=== PATIENT | male | born 1935 | race Asian ===

== ENCOUNTER 2019-06-23 20:47 | Emergency (ER) | payer OTHER ==
[2019-06-23] MEDS ORDERED: ONDANSETRON 4 MG/2 ML VIAL ONE (21:27)
[2019-06-23] MEDS ORDERED: MORPHINE 2 MG/ML SYR ONE (21:27)
[2019-06-23] MEDS ORDERED: NA CHLORIDE 0.9% 1,000 ML ONE (21:28)
[2019-06-23 21:37] LABS: Absolute Lymphocytes (CBC) 1.6 K/uL (0.7-4.9); Basophils % 0.7 % (0-1.3); Lymphocytes % 33.6 % (15.3-44.8); MPV 9.5 fL (7.6-11.3); RBC Red Blood Cell Count 3.82 M/uL (4.33-5.43)
[2019-06-23 21:54] LABS: Albumin 3.8 g/dL (3.4-5.0); Bilirubin Direct 0.1 mg/dL (0-0.2); Bilirubin Total 0.2 mg/dL (0.2-1.0); Potassium 4.2 mmol/L (3.5-5.1); Protein, Total 7.2 g/dL (6.4-8.2)
[2019-06-23 22:20] LABS: Urine Blood NEGATIVE (NEG); Urine Glucose NEGATIVE (NEG); Urine Protein NEGATIVE (NEG); Urine Specific Gravity 1.025 (1.005-1.030)
[2019-06-23 22:22] LABS: Urine Bacteria <20 /HPF (NONE SEEN); Urine RBC <5 /HPF (NONE SEEN)
[2019-06-23 22:23] LABS: Urine Culture Reflex Order NOT NEEDED; Urine Mucus 1+ /HPF (NONE SEEN)
--- NOTE | 2019-06-23 23:05 | EDPHYS ---
Physician Documentation [facility] Name: Brendon Gomez Age: 83 yrs Sex: Male : 1935 Arrival Date: 06/23/2019 Time: 20:53 Bed 16 Private MD: Sandy Crawford H ED Physician Jeremy Blackwell HPI: 06/23 21:20 This 83 yrs old Male presents to ER via Ambulatory with complaints of Abdominal cp Pain, Hip Pain. 21:20 The patient presents with abdominal pain that is diffuse. Onset: The symptoms/episode cp began/occurred and became worse today, for months. The symptoms do not radiate. Associated signs and symptoms: Pertinent positives: constipation, Pertinent negatives: blood in stools, diarrhea, dysuria, fever, shortness of breath, testicular pain, vomiting. The symptoms are described as waxing/waning. 21:20 Severity of pain: in the emergency department the pain is a 10 / 10. cp Historical: - Allergies: 21:13 No Known Allergies; rr5 - Home Meds: 21:13 Melatonin Oral [Active]; metoprolol tartrate 50 mg Oral tab [Active]; tylenol [Active]; rr5 - PMHx: 21:13 Hypertension; prostate problem; rr5 - PSHx: 21:13 None; rr5 - Immunization history:: Adult Immunizations up to date. - Social history:: Smoking status: Patient/guardian denies using tobacco, Patient/guardian denies using alcohol, street drugs. - Ebola Screening: : Patient negative for fever greater than or equal to 101.5 degrees Fahrenheit, and additional compatible Ebola Virus Disease symptoms Patient denies exposure to infectious person Patient denies travel to an Ebola-affected area in the 21 days before illness onset. ROS: 21:25 Constitutional: Negative for body aches, chills, fever, poor PO intake. cp 21:25 Eyes: Negative for injury, pain, redness, and discharge. cp 21:25 ENT: Negative for drainage from ear(s), ear pain, sore throat, difficulty swallowing, difficulty handling secretions. 21:25 Cardiovascular: Negative for chest pain, edema. 21:25 Respiratory: Negative for cough, shortness of breath, wheezing. 21:25 Abdomen/GI: Positive for abdominal pain, constipation, Negative for vomiting, diarrhea, black/tarry stool, rectal bleeding. 21:25 Back: Negative for pain at rest, pain with movement, radiated pain. 21:25 : Negative for urinary symptoms, testicular pain 21:25 Neuro: Negative for altered mental status, dizziness, headache, weakness. 21:25 All other systems are negative. Exam: 21:30 Constitutional: The patient appears in no acute distress, alert, awake, cp non-diaphoretic, non-toxic, well developed, well nourished. 21:30 Head/Face: Normocephalic, atraumatic. cp Vital Signs: 21:05 BP 188 / 87; Pulse 60; Resp 17; Temp 98; Pulse Ox 97% ; Weight 58.97 kg; Height 5 ft. 5 rr5 in. (165.10 cm); Pain 10/10; 22:00 BP 167 / 75; Pulse 59; Resp 17; Pulse Ox 99% on R/A; rr5 23:00 BP 171 / 80; Pulse 61; Resp 17; Pulse Ox 99% ; Pain 0/10; rr5 0804 00:00 BP 169 / 71; Pulse 55; Resp 16; Pulse Ox 99% on R/A; rr5 01:00 BP 157 / 92; Pulse 57; Resp 15; Pulse Ox 99% ; rr5 02:00 BP 176 / 76; Pulse 60; Resp 17; Pulse Ox 99% ; rr5 03:00 BP 170 / 85; Pulse 57; Resp 17; Temp 98.2; Pulse Ox 98% ; rr5 03:35 BP 163 / 82; Pulse 60; Resp 17; Temp 97.5; Pulse Ox 99% ; rr5 06/23 21:05 Body Mass Index 21.63 (58.97 kg, 165.10 cm) rr5 MDM: 06/23 21:19 Patient medically screened. cp 23:04 Data reviewed: vital signs, nurses notes, lab test result(s), radiologic studies, CT jr8 scan, and as a result, I will discharge patient. Data interpreted: Pulse oximetry: on room air is 99 %. Interpretation: normal. Counseling: I had a detailed discussion with the patient and/or guardian regarding: the historical points, exam findings, and any diagnostic results supporting the discharge/admit diagnosis, lab results, radiology results, the need for outpatient follow up, a family practitioner, a park maintainer, to return to the emergency department if symptoms worsen or persist or if there are any questions or concerns that arise at home. 23:04 Special discussion: Based on the patient's Hx, exam, and Dx evaluation, there is no jr8 indication for emergent surgery or inpatient Tx. It is understood by the patient/guardian that if the Sx's persist or worsen they need to return immediately for re-evaluation. 06/24 02:50 ED course: Patient resting comfortably in exam room. VS stable. Labs and CT abdomen jr8 without acute findings. Was later discovered due to translation problems that patient had been experiencing orthopnea and PND intermittently. Troponin and BNP normal. EKG without acute finding. CXR with central vascular engorgement. Pending CT but the system is down and will not be up for near future. Family wanting to go home. Would let them go and to f/u with cardiology. Knows to come back if worse. Will call them with CT results. If with critical findings will bring him straight back to ED for admission or transfer . 06/23 21:16 Order name: Basic Metabolic Panel; Complete Time: 22:33 cp 06/23 21:16 Order name: CBC with Diff; Complete Time: 22:33 cp 06/23 21:16 Order name: Creatinine for Radiology; Complete Time: 22:33 cp 06/23 21:16 Order name: Hepatic Function; Complete Time: 22:33 cp 06/23 21:16 Order name: Lipase; Complete Time: 22:33 cp 06/23 21:16 Order name: Urine Microscopic Only; Complete Time: 22:33 cp 06/23 21:18 Order name: CT Abd/Pelvis - IV Contrast Only cp 06/23 22:12 Order name: Urine Dipstick--Ancillary (enter results); Complete Time: 22:33 ag4 06/23 23:36 Order name: XRAY Chest (1 view); Complete Time: 12:50 jr8 06/24 00:03 Order name: Troponin (emerg Dept Use Only); Complete Time: 00:42 jr8 06/24 00:03 Order name: BNP; Complete Time: 00:42 jr8 06/24 00:03 Order name: PT-INR; Complete Time: 00:37 jr8 06/24 00:44 Order name: CT Chest Wo Con; Complete Time: 15:06 jr8 06/23 21:16 Order name: IV Saline Lock; Complete Time: 22:17 cp 06/23 21:16 Order name: Labs collected and sent; Complete Time: 22:17 cp 06/23 21:16 Order name: Urine Dipstick-Ancillary (obtain specimen); Complete Time: 22:17 cp 06/23 23:36 Order name: EKG - Nurse/Tech; Complete Time: 23:51 jr8 Administered Medications: 06/23 21:30 Drug: NS 0.9% 250 ml Route: IV; Rate: bolus; Site: left antecubital; cc3 22:00 Follow up: Response: No adverse reaction; IV Status: Completed infusion; IV Intake: rr5 250ml 21:30 Drug: morphine 2 mg Route: IVP; Site: left antecubital; cc3 22:30 Follow up: Response: No adverse reaction rr5 21:36 Drug: Zofran 4 mg Route: IVP; Site: left antecubital; cc3 22:40 Follow up: Response: No adverse reaction rr5 21:45 Drug: NS 0.9% 1000 ml Route: IV; Rate: 100 ml/hr; Site: left antecubital; rr5 06/24 00:20 Follow up: Response: No adverse reaction; IV Status: Order to discontinue infusion; IV rr5 Intake: 200ml Disposition: 06/24/19 02:58 Discharged to Home. Impression: Bradycardia, unspecified, Dyspnea. - Condition is Stable. - Discharge Instructions: Bradycardia, Adult, Heart Failure, Shortness of Breath. - Medication Reconciliation Form, Thank You Letter, Antibiotic Education, Prescription Opioid Use form. - Follow up: Juan Estrella MD; When: 1 - 2 days; Reason: Recheck today's complaints, Continuance of care, Re-evaluation by your physician. - Problem is new. - Symptoms have improved. Addendum: 06/25/2019 09:24 Co-signature as Attending Physician, Jeremy Blackwell MD I agree with the assessment and c coyne plan of care. Signatures: Dispatcher [employer] [facility] Jeremy Blackwell MD MD cha Roszak, Josh, PA PA jr8 Jeremy Lora PA PA cp Cordel, Charlene cc3 Kip Heart RN RN rr5 Corrections: (The following items were deleted from the chart) 06/23 22:06/22 21:30 Constitutional: The patient appears in no acute distress, alert, awake, cp non-diaphoretic, non-toxic, well developed, well nourished, cp 06/23 22:21 06/22 21:30 Head/Face: Normocephalic, atraumatic. cp cp 06/23 22:06/22 21:30 Eyes: Periorbital structures: appear normal, Conjunctiva: normal, no cp exudate, no injection, Sclera: no appreciated abnormality, Lids and lashes: appear normal, bilaterally, cp 06/23 22:06/22 21:30 ENT: External ear(s): are unremarkable, Nose: is normal, Mouth: Lips: cp moist, Oral mucosa: pink and intact, moist, Posterior pharynx: is normal, airway is patent, no erythema, no exudate, cp 06/23 22:06/22 21:30 Chest/axilla: Inspection: normal, Palpation: is normal, no crepitus, no cp tenderness, cp 06/23 22:21 08 21:30 Cardiovascular: Rate: normal, Rhythm: regular, Edema: ankle edema, that is cp mild, JVD: is not appreciated, cp 06/23 22:06/22 21:30 Respiratory: the patient does not display signs of respiratory distress, cp Respirations: normal, no use of accessory muscles, no retractions, no splinting, no tachypnea, labored breathing, is not present, Breath sounds: are clear throughout, no decreased breath sounds, no stridor, no wheezing, cp 06/23 22:06/22 21:30 Abdomen/GI: Inspection: abdomen appears normal, Bowel sounds: active, all cp quadrants, Palpation: soft, in all quadrants, moderate abdominal tenderness, in all quadrants, cp 06/23 22:06/22 21:30 Back: pain, is absent, ROM is normal, cp cp 06/24 00:03 06/23 23:04 06/23/2019 23:04 Discharged to Home. Impression: Abdominal and pelvic pain. jr8 Condition is Stable. Forms are Medication Reconciliation Form, Thank You Letter, Antibiotic Education, Prescription Opioid Use. Follow up: Sandy Crawford; When: 2 - 3 days; Reason: Recheck today's complaints, Continuance of care, Re-evaluation by your physician. Problem is new. Symptoms have improved. jr8 06/24 03:39 02:58 06/24/2019 02:58 Discharged to Home. Impression: Bradycardia, unspecified; rr5 Dyspnea. Condition is Stable. Forms are Medication Reconciliation Form, Thank You Letter, Antibiotic Education, Prescription Opioid Use. Follow up: Juan Estrella; When: 1 - 2 days; Reason: Recheck today's complaints, Continuance of care, Re-evaluation by your physician. Problem is new. Symptoms have improved. jr8
[2019-06-24 00:29] LABS: Protime INR 1.06
[2019-06-24 00:41] LABS: NT PRO-BNP 354 pg/mL (<450); Troponin (Emerg Dept Use Only) < 0.02 ng/mL (0.0-0.045)
--- NOTE | 2019-06-24 03:00 | ER ---
Nurse's Notes [facility] Name: Brendon Arechiga Age: 83 yrs Sex: Male : 1935 Arrival Date: 06/23/2019 Time: 20:53 Bed 16 Private MD: Sandy Crawford H Diagnosis: Bradycardia, unspecified;Dyspnea Presentation: 06/23 21:05 Presenting complaint: Child states: he is complainig of abdominal discomfort for couple rr5 of months now. but today he cannot take it anymore the discomfort. he cannot lay down because of the discomfort. pain score 10/10. no N/V/diarrhea, he is being constipated too last BM yesterday small in amount. 21:05 Transition of care: patient was not received from another setting of care. Onset of rr5 symptoms was May 2019. Risk Assessment: Do you want to hurt yourself or someone else? Patient reports no desire to harm self or others. Initial Sepsis Screen: Does the patient meet any 2 criteria? No. Patient's initial sepsis screen is negative. Does the patient have a suspected source of infection? No. Patient's initial sepsis screen is negative. Care prior to arrival: None. 21:05 Method Of Arrival: Ambulatory rr5 21:05 Acuity: ANGELI 3 rr5 Historical: - Allergies: 21:13 No Known Allergies; rr5 - Home Meds: 21:13 Melatonin Oral [Active]; metoprolol tartrate 50 mg Oral tab [Active]; tylenol [Active]; rr5 - PMHx: 21:13 Hypertension; prostate problem; rr5 - PSHx: 21:13 None; rr5 - Immunization history:: Adult Immunizations up to date. - Social history:: Smoking status: Patient/guardian denies using tobacco, Patient/guardian denies using alcohol, street drugs. - Ebola Screening: : Patient negative for fever greater than or equal to 101.5 degrees Fahrenheit, and additional compatible Ebola Virus Disease symptoms Patient denies exposure to infectious person Patient denies travel to an Ebola-affected area in the 21 days before illness onset. Screenin:29 Abuse screen: Denies threats or abuse. Denies injuries from another. Nutritional rr5 screening: No deficits noted. Tuberculosis screening: No symptoms or risk factors identified. Fall Risk IV access (20 points). Gait- Impaired (20 pts.). Total Bonner Fall Scale indicates Low Risk Score (25-44 pts). Fall prevention measures have been instituted. Side Rails Up X 2 Placed close to Nursing Station Frequent Obs/Assesments occuring Family Present and informed to notify staff if they need to leave bedside As available Patient and Family Educated on Fall Prevention Program and strategies. Assessment: 21:15 General: Appears in no apparent distress. uncomfortable, Behavior is calm, cooperative, rr5 appropriate for age. 21:15 Pain: Complains of pain in abdomen Pain does not radiate. Pain currently is 10 out of rr5 10 on a pain scale. Quality of pain is described as aching, discomfort Pain began gradually, Is intermittent. Neuro: Level of Consciousness is awake, alert, obeys commands, Oriented to person, place, time, situation, Appropriate for age. Cardiovascular: Capillary refill < 3 seconds Patient's skin is warm and dry. Respiratory: Airway is patent Respiratory effort is even, unlabored, Respiratory pattern is regular, symmetrical. GI: Abdomen is round Bowel sounds present X 4 quads. Abd is non tender Reports constipation, Patient currently denies nausea, vomiting. : Urine is clear, Reports inability to void, for 3 days. EENT: No signs and/or symptoms were reported regarding the EENT system. Derm: Skin is intact, Skin temperature is warm. Musculoskeletal: Circulation, motion, and sensation intact. Capillary refill < 3 seconds, Reports bipedal edema. 22:10 Reassessment: Patient appears in no apparent distress at this time. Patient is alert, rr5 oriented x 3, equal unlabored respirations, skin warm/dry/pink. sent to CT scan via wheelchair assisted by CT staff. 23:00 Reassessment: Patient appears in no apparent distress at this time. Patient is alert, rr5 oriented x 3, equal unlabored respirations, skin warm/dry/pink. Patient states feeling better. Patient states symptoms have improved. 23:25 Reassessment: Patient appears in no apparent distress at this time. review done by ED rr5 provider ordered for xray and ecg. 06/24 00:05 Reassessment: cancelled the discharge order added further laboratory exam. rr5 00:50 Reassessment: Patient appears in no apparent distress at this time. Patient is alert, rr5 oriented x 3, equal unlabored respirations, skin warm/dry/pink. went to washroom voided freely. steady gait noted. 01:00 Reassessment: Patient appears in no apparent distress at this time. Patient is alert, rr5 oriented x 3, equal unlabored respirations, skin warm/dry/pink. went to CT scan via wheelchair assisted by CT staff. 01:55 Reassessment: Patient appears in no apparent distress at this time. Patient is alert, rr5 oriented x 3, equal unlabored respirations, skin warm/dry/pink. awaiting for CT result. 02:20 Reassessment: the system is down still waiting for CT result. rr5 02:50 Reassessment: family contact number. [phone] usman ARECHIGA [phone] Parisa Arechiga. rr5 02:50 Reassessment: ED provider spoke to patients head of science explained the findings and plan rr5 to discharge the patient. will call the head of science if the CT result will be available. head of science agreed for the plan of care. 03:15 Reassessment: Patient appears in no apparent distress at this time. Patient is alert, rr5 oriented x 3, equal unlabored respirations, skin warm/dry/pink. patient took his BP medication. no complaints made. discharge instruction given and explained to head of science without complaints made. Vital Signs: 06/23 21:05 BP 188 / 87; Pulse 60; Resp 17; Temp 98; Pulse Ox 97% ; Weight 58.97 kg; Height 5 ft. 5 rr5 in. (165.10 cm); Pain 10/10; 22:00 BP 167 / 75; Pulse 59; Resp 17; Pulse Ox 99% on R/A; rr5 23:00 BP 171 / 80; Pulse 61; Resp 17; Pulse Ox 99% ; Pain 0/10; rr5 04 00:00 BP 169 / 71; Pulse 55; Resp 16; Pulse Ox 99% on R/A; rr5 01:00 BP 157 / 92; Pulse 57; Resp 15; Pulse Ox 99% ; rr5 02:00 BP 176 / 76; Pulse 60; Resp 17; Pulse Ox 99% ; rr5 03:00 BP 170 / 85; Pulse 57; Resp 17; Temp 98.2; Pulse Ox 98% ; rr5 03:35 BP 163 / 82; Pulse 60; Resp 17; Temp 97.5; Pulse Ox 99% ; rr5 06/23 21:05 Body Mass Index 21.63 (58.97 kg, 165.10 cm) rr5 ED Course: 06/23 20:53 Patient arrived in ED. es 20:53 Sandy Crawford DO is Private Physician. es 21:01 Jeremy Lora PA is PHCP. cp 21:01 Jeremy Blackwell MD is Attending Physician. cp 21:05 Kip Heart, RONALD is Primary Nurse. rr5 21:10 Triage completed. rr5 21:26 Radiology exam delayed due to lab results not completed at this time. (BUN/Creatinine). mw3 21:30 Patient has correct armband on for positive identification. Placed in gown. Bed in low rr5 position. Call light in reach. Side rails up X2. Adult w/ patient. Pulse ox on. NIBP on. 21:30 Initial lab(s) drawn, by co, sent to lab. Bladder scan completed. 221ml. Inserted jp3 saline lock: 22 gauge in left antecubital area, using aseptic technique. Blood collected. 21:35 Arm band placed on. rr5 21:45 Urine collected: clean catch specimen, clear, nnamdi colored. jp3 22:28 CT Abd/Pelvis - IV Contrast Only In Process Unspecified. EDMS 22:33 PHCP role handed off by Jeremy Lora PA jr8 22:33 Neri Owusu PA is PHCP. jr8 23:04 Sandy Crawford DO is Referral Physician. jr8 23:49 X-ray completed. Portable x-ray completed in exam room. Patient tolerated procedure mh1 well. 23:54 XRAY Chest (1 view) In Process Unspecified. EDMS 23:58 EKG done, by ED staff, reviewed by Neri DAVID. jp3 06/24 02:57 Juan Estrella MD is Referral Physician. jr8 03:11 No provider procedures requiring assistance completed. IV discontinued, intact, rr5 bleeding controlled, No redness/swelling at site. Pressure dressing applied. 07:19 CT Chest Wo Con In Process Unspecified. EDMS Administered Medications: 06/23 21:30 Drug: NS 0.9% 250 ml Route: IV; Rate: bolus; Site: left antecubital; cc3 22:00 Follow up: Response: No adverse reaction; IV Status: Completed infusion; IV Intake: rr5 250ml 21:30 Drug: morphine 2 mg Route: IVP; Site: left antecubital; cc3 22:30 Follow up: Response: No adverse reaction rr5 21:36 Drug: Zofran 4 mg Route: IVP; Site: left antecubital; cc3 22:40 Follow up: Response: No adverse reaction rr5 21:45 Drug: NS 0.9% 1000 ml Route: IV; Rate: 100 ml/hr; Site: left antecubital; rr5 06/24 00:20 Follow up: Response: No adverse reaction; IV Status: Order to discontinue infusion; IV rr5 Intake: 200ml Intake: 06/23 22:00 IV: 250ml; Total: 250ml. rr5 06/24 00:20 IV: 200ml; Total: 450ml. rr5 Outcome: 06/23 23:04 Discharge ordered by . jr8 06/24 02:58 Discharge ordered by . jr8 03:37 Discharged to home ambulatory, with family. rr5 03:37 Condition: stable 03:37 Discharge instructions given to family, Instructed on discharge instructions, follow up and referral plans. Demonstrated understanding of instructions, follow-up care. 03:39 Patient left the ED. rr5 Signatures: Dispatcher [employer] Ratna Banks Martha 1 Neri Owusu PA PA jr8 Jeremy Lora PA PA cp Willis, Michelle 3 Yogi Rios jp3 Viji Hampton 3 Kip Heart, RONALD RN rr5
--- NOTE | 2019-06-24 12:42 | RAD REPORT ---
EXAM DESCRIPTION: RAD - Chest Single View - 06/23/2019 11:53 pm CLINICAL HISTORY: Dyspnea COMPARISON: February 2018 TECHNIQUE: AP portable chest image was obtained 2346 hour . FINDINGS: Lung volumes low accentuating baseline interstitial pattern. No peripheral mass or consoli dation. Due to the low volume of lung, earliest stages of an interstitial edema or infiltrate are pot entially masked. Trachea is midline. Heart and vasculature are normal. No measurable pleural effusion and no pneumothorax. No acute bony abnormality seen. No acute aortic findings suspected. IMPRESSION: No acute cardiopulmonary process. Shallow inspiration accentuates the baseline interstitial pattern potentially masking early edema or infiltrate.
--- NOTE | 2019-06-24 13:34 | RAD REPORT ---
EXAM DESCRIPTION: CT - Thorax Wo Bruce - 06/24/2019 7:19 am CLINICAL HISTORY: Dyspnea, chest pain, abdominal pain COMPARISON: Chest exam same date TECHNIQUE: Axial 5 mm thick images of the chest were obtained without IV contrast. All CT scans are performed using dose optimization technique as appropriate and may include automated exposure control or mA/KV adjustment according to patient size. FINDINGS: No focal infiltrate or mass. No significant lung parenchymal process seen. No pleural thic kening or pleural effusion. No pneumothorax. No abnormal mediastinal or hilar masses or lymphadenopathy seen. Aorta and pulmonary artery assessmen t limited due to absence of contrast. Ascending thoracic aorta is 4.3 cm in diameter. No displaced ao rtic calcifications. Dense Coronary artery calcifications are present. Cardiomegaly is present withou t pericardial effusion. No chest wall mass or abnormal axillary lymphadenopathy. Due to technical malfunction there was no ability to dictate and only limited ability to access image s. This delayed final dictation. Preliminary verbal report was telephoned when images were finally av ailable. IMPRESSION: No pneumonia, mass or acute lung parenchymal process identifiable. Cardiomegaly without pericardial effusion. Ascending aorta is 4.3 cm in diameter.
--- NOTE | 2019-06-25 07:50 | EKG ---
Test Date: 2019-06-23 Test Time: 23:52:29 [place]: LANIE MEASUREMENT RESULTS: Intervals: Rate: 56 OH: 182 QRSD: 72 QT: 482 QTc: 465 [place]: P: 32 OH: 182 QRS: -3 T: 9 INTERPRETIVE STATEMENTS: Sinus bradycardia Minimal voltage criteria for LVH, may be normal variant Borderline ECG No previous ECG available for comparison Electronically Signed On 06-25-19 07:48:55 CDT by Juan Estrella
--- NOTE | 2019-06-25 13:31 | RAD REPORT ---
EXAM DESCRIPTION: CT - Abdomen Pelvis W Contrast - 06/23/2019 10:59 pm CLINICAL HISTORY: Abdominal pain. COMPARISON: None. TECHNIQUE: CT scan of the abdomen and pelvis was performed with IV contrast. This exam was performed according to our departmental dose-optimization program, which includes automated exposure control, adjustment of the mA and/or kV according to patient size and/or use of iterative reconstruction techn ique. FINDINGS: Scattered atelectasis at the lung bases. No pleural or pericardial effusions. No hiatal he rnia. There are multiple cysts in the liver with the largest measuring 2 cm in the right hepatic lobe . The gallbladder, spleen, pancreas, adrenal glands, and kidneys are normal with simple cysts in both kidneys. No hydronephrosis or urinary stones. The prostate gland is measuring 6.3 cm. No small bowel obstruction. The appendix is normal. No evidence of acute diverticulitis. No adenopath y, free fluid, or free air is identified. The aorta is moderately atherosclerotic. There are mild deg enerative changes of the spine. 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 IMPRESSION: No acute abdominal or pelvic pathology. Electronically signed by: Marquis Rodriguez MD 06/23/2019 10:53 PM CDT Due to temporary technical issues with the PACS/Fluency reporting system, reports are being signed by the in house radiologist as a courtesy to ensure prompt reporting. The interpreting radiologist is f ully responsible for the content of the report.
== END 2019-06-24 03:39 | disposition home or self-care (01) ==
LOC: ER 20:47
DX: R00.1 Bradycardia, unspecified (principal); R06.00 Dyspnea, unspecified; I10 Essential (primary) hypertension
CPT/HCPCS: 96365; 96361; 93005; 85025; 80048; 36415; 85610; 80076; 84484; 83690; 83880; 71250; 74177; 71045; 96375; 99284; Q9967; J2270; J7030; J2405; 81003; 81015

== ENCOUNTER 2020-07-07 01:54 | Emergency (ER) | payer OTHER ==
[2020-07-07 02:47] LABS: Basophils % 0.9 % (0-1.3); Hematocrit 35.8 % (39.6-49.0); Lymphocytes % 21.4 % (15.3-44.8); MPV 9.4 fL (7.6-11.3); RBC Red Blood Cell Count 3.85 M/uL (4.33-5.43)
[2020-07-07 03:02] LABS: Albumin 4.3 g/dL (3.4-5.0); Bilirubin Direct 0.2 mg/dL (0-0.2); Bilirubin Total 0.6 mg/dL (0.2-1.0); Protein, Total 8.1 g/dL (6.4-8.2)
[2020-07-07 04:01] LABS: Urine Bacteria <20 /HPF (NONE SEEN); Urine Culture Reflex Order NOT NEEDED; Urine RBC <5 /HPF (NONE SEEN)
[2020-07-07 04:02] LABS: Urine Blood TRACE (NEG); Urine Glucose NEGATIVE (NEG); Urine Protein NEGATIVE (NEG); Urine Specific Gravity 1.025 (1.005-1.030); Urine pH 5.5 (5.0-7.0)
--- NOTE | 2020-07-07 04:41 | ER ---
Nurse's Notes [facility] Name: Brendon Gomez Age: 84 yrs Sex: Male : 1935 Arrival Date: 07/07/2020 Time: 01:55 Bed 8 Private MD: Diagnosis: Retention of urine, unspecified Presentation: 07/07 02:11 Chief complaint: Patient's son or daughter states: He is having difficulty laughing jb4 down due to discomfort in his stomach. He says he is unable to pee, and before he was only peeing very little at a time. Coronavirus screen: Client denies travel out of the [place] in the last 14 days. At this time, the client does not indicate any symptoms associated with coronavirus-19. Ebola Screen: No symptoms or risks identified at this time. Initial Sepsis Screen: Does the patient meet any 2 criteria? No. Patient's initial sepsis screen is negative. Does the patient have a suspected source of infection? No. Patient's initial sepsis screen is negative. Risk Assessment: Do you want to hurt yourself or someone else? Patient reports no desire to harm self or others. Onset of symptoms was July 07, 2020. Transition of care: patient was not received from another setting of care. 02:11 Method Of Arrival: Wheelchair jb4 02:11 Acuity: ANGELI 3 jb4 Historical: - Allergies: 02:17 No Known Allergies; jb4 - Home Meds: 02:17 clonidine HCl 0.1 mg Oral tab 1 tab every 6-8 hrs as needed for systolic BP greater jb4 than 160 [Active]; trazodone 50 mg Oral tab 1-2 tabs as needed for insomnia. [Active]; finasteride 5 mg oral tab [Active]; metoprolol tartrate 50 mg Oral tab 1 tab 2 times per day [Active]; losartan 50 mg oral tab 1 tab once daily [Active]; - PMHx: 02:17 Hypertension; Prostate problem; insomnia; High Cholesterol; jb4 - PSHx: 02:17 None; jb4 - Immunization history:: Adult Immunizations unknown. - Social history:: Smoking status: Patient denies any tobacco usage or history of. Patient/guardian denies using alcohol, street drugs. Screenin:21 Abuse screen: Denies threats or abuse. Denies injuries from another. Nutritional wh screening: No deficits noted. Tuberculosis screening: No symptoms or risk factors identified. Fall Risk None identified. Assessment: 02:21 General: Appears in no apparent distress. Behavior is calm, cooperative, appropriate wh for age. Pain: Denies pain. Neuro: Level of Consciousness is awake, alert, obeys commands, Oriented to person, place, time, situation, Appropriate for age. Cardiovascular: Capillary refill < 3 seconds. Respiratory: Airway is patent Respiratory effort is even, unlabored, Respiratory pattern is regular, symmetrical. GI: Abdomen is flat, non-distended. : Parent/caregiver report the patient having inability to void uncomfortable baldder. EENT: No signs and/or symptoms were reported regarding the EENT system. Derm: Skin is intact, is healthy with good turgor, Skin is pink, warm \T\ dry. normal. Musculoskeletal: Circulation, motion, and sensation intact. 02:24 Reassessment: Bladder scan done notified MD. 03:14 Reassessment: Patient appears in no apparent distress at this time. No changes from previously documented assessment. Patient and/or family updated on plan of care and expected duration. Pain level reassessed. Patient is alert, oriented x 3, equal unlabored respirations, skin warm/dry/pink. 04:21 Reassessment: Patient appears in no apparent distress at this time. No changes from previously documented assessment. Patient and/or family updated on plan of care and expected duration. Pain level reassessed. Patient is alert, oriented x 3, equal unlabored respirations, skin warm/dry/pink. Vital Signs: 02:11 BP 186 / 78; Pulse 64; Resp 16; Temp 98.2(TE); Pulse Ox 97% on R/A; Height 5 ft. 2 in. jb4 (157.48 cm) (R); Pain 0/10; 03:14 BP 135 / 65; Pulse 51; Resp 18; Pulse Ox 97% on R/A; wh 04:15 BP 131 / 68; Pulse 56; Resp 16; Pulse Ox 97% on R/A; ED Course: 01:55 Patient arrived in ED. cl3 02:01 Wade Dobson MD is Attending Physician. tw4 02:13 Triage completed. jb4 02:17 Arm band placed on right wrist. jb4 02:22 Patient has correct armband on for positive identification. Bed in low position. Call light in reach. Side rails up X 1. Pulse ox on. NIBP on. 02:24 Salazar Tiwari is Primary Nurse. 03:33 Salazar Tiwari is Primary Nurse. 03:45 CT Abd/Pelvis - IV Contrast Only In Process Unspecified. EDMS 04:30 No provider procedures requiring assistance completed. IV discontinued, intact, bleeding controlled, No redness/swelling at site. 04:44 Yung Mccrary MD is Referral Physician. tw4 04:44 Nguyen Spencer MD is Referral Physician. tw4 Administered Medications: No medications were administered Outcome: 04:30 Discharged to home via wheelchair, with family. 04:30 Condition: stable 04:30 Discharge instructions given to patient, family, Instructed on discharge instructions, follow up and referral plans. POC Demonstrated understanding of instructions, follow-up care, POC 04:40 Discharge ordered by . tw4 04:50 Patient left the ED. jb4 Signatures: Dispatcher [employer] EDTN Abdulkadir Robbins, RN RN jb4 Salazar Tiwari Wade Dobson MD MD tw4 Ofe Crandall cl3
--- NOTE | 2020-07-07 04:41 | EDPHYS ---
Physician Documentation [facility] Name: Brendon Gomez Age: 84 yrs Sex: Male : 1935 Arrival Date: 07/07/2020 Time: 01:55 Bed 8 Private MD: ED Physician Wade Dobson HPI: 07/07 05:33 This 84 yrs old Male presents to ER via Wheelchair with complaints of Urinary tw4 Problem, Weakness. 05:33 The patient presents with urinary symptoms, unable to void. Onset: The symptoms/episode tw4 began/occurred just prior to arrival, today. Modifying factors: The symptoms are alleviated by nothing. Associated signs and symptoms: The patient has no apparent associated signs or symptoms. The patient has not experienced similar symptoms in the past. Historical: - Allergies: 02:17 No Known Allergies; jb4 - Home Meds: 02:17 clonidine HCl 0.1 mg Oral tab 1 tab every 6-8 hrs as needed for systolic BP greater jb4 than 160 [Active]; trazodone 50 mg Oral tab 1-2 tabs as needed for insomnia. [Active]; finasteride 5 mg oral tab [Active]; metoprolol tartrate 50 mg Oral tab 1 tab 2 times per day [Active]; losartan 50 mg oral tab 1 tab once daily [Active]; - PMHx: 02:17 Hypertension; Prostate problem; insomnia; High Cholesterol; jb4 - PSHx: 02:17 None; jb4 - Immunization history:: Adult Immunizations unknown. - Social history:: Smoking status: Patient denies any tobacco usage or history of. Patient/guardian denies using alcohol, street drugs. ROS: 05:33 Constitutional: Negative for fever, chills, and weight loss, Eyes: Negative for injury, tw4 pain, redness, and discharge, Cardiovascular: Negative for chest pain, palpitations, and edema, Respiratory: Negative for shortness of breath, cough, wheezing, and pleuritic chest pain, Abdomen/GI: Negative for abdominal pain, nausea, vomiting, diarrhea, and constipation, Back: Negative for injury and pain. 05:33 Skin: Negative for injury, rash, and discoloration, Neuro: Negative for headache, weakness, numbness, tingling, and seizure. 05:33 : Positive for burning with urination, difficulty urinating. Exam: 05:33 Constitutional: This is a well developed, well nourished patient who is awake, alert, tw4 and in no acute distress. Head/Face: Normocephalic, atraumatic. Chest/axilla: Normal chest wall appearance and motion. Nontender with no deformity. No lesions are appreciated. Cardiovascular: Regular rate and rhythm with a normal S1 and S2. No gallops, murmurs, or rubs. Normal PMI, no JVD. No pulse deficits. Respiratory: Lungs have equal breath sounds bilaterally, clear to auscultation and percussion. No rales, rhonchi or wheezes noted. No increased work of breathing, no retractions or nasal flaring. Abdomen/GI: Soft, non-tender, with normal bowel sounds. No distension or tympany. No guarding or rebound. No evidence of tenderness throughout. MS/ Extremity: Pulses equal, no cyanosis. Neurovascular intact. Full, normal range of motion. Neuro: Awake and alert, GCS 15, oriented to person, place, time, and situation. Cranial nerves II-XII grossly intact. Motor strength 5/5 in all extremities. Sensory grossly intact. Cerebellar exam normal. Normal gait. Vital Signs: 02:11 BP 186 / 78; Pulse 64; Resp 16; Temp 98.2(TE); Pulse Ox 97% on R/A; Height 5 ft. 2 in. jb4 (157.48 cm) (R); Pain 0/10; 03:14 BP 135 / 65; Pulse 51; Resp 18; Pulse Ox 97% on R/A; wh 04:15 BP 131 / 68; Pulse 56; Resp 16; Pulse Ox 97% on R/A; wh MDM: 02:01 Patient medically screened. tw4 05:33 Differential diagnosis: nonspecific abdominal pain, UTI, urinary retention, tw4 prostatitis, urethritis. Data reviewed: vital signs, nurses notes. Data reviewed: lab test result(s), CBC, electrolytes, hepatic panel, urinalysis, radiologic studies, CT scan. Data interpreted: Pulse oximetry: Interpretation: normal. Counseling: I had a detailed discussion with the patient and/or guardian regarding: the historical points, exam findings, and any diagnostic results supporting the discharge/admit diagnosis. Special discussion: I discussed with the patient/guardian in detail that at this point there is no indication for admission to the hospital. It is understood, however, that if the symptoms persist or worsen the patient needs to return immediately for re-evaluation. 07/07 02:12 Order name: Basic Metabolic Panel [facility] 07/07 02:12 Order name: CBC with Diff; Complete Time: 04:39 [facility] 07/07 04:39 Interpretation: Normal except: RBC 3.85; HGB 12.2; HCT 35.8. [facility] 07/07 02:12 Order name: Hepatic Function [facility] 07/07 02:12 Order name: Lipase; Complete Time: 04:39 [facility] 07/07 04:39 Interpretation: Within normal limits: LIP 141. [facility] 07/07 02:12 Order name: Urine Microscopic Only; Complete Time: 04:39 [facility] 07/07 04:39 Interpretation: Within normal limits. 07/07 02:13 Order name: Basic Metabolic Panel; Complete Time: 04:39 EDMS 07/07 04:39 Interpretation: Normal except: BUN 29; CRE 1.58; GFR 42. [facility] 07/07 02:12 Order name: IV Saline Lock; Complete Time: 02:37 [facility] 07/07 02:12 Order name: Labs collected and sent; Complete Time: 02:37 [facility] 07/07 02:12 Order name: Urine Dipstick-Ancillary (obtain specimen); Complete Time: 02:51 [facility] 07/07 02:13 Order name: Liver (Hepatic) Function; Complete Time: 04:39 EDMS 07/07 04:39 Interpretation: Normal except: GLOB 3.8. [facility] 07/07 02:47 Order name: CT Abd/Pelvis - IV Contrast Only 07/07 02:52 Order name: Urine Dipstick--Ancillary (enter results); Complete Time: 04:39 [facility] 07/07 04:39 Interpretation: Normal except: UBLD TRACE. tw4 Administered Medications: No medications were administered Disposition: 07/07/20 04:40 Discharged to Home. Impression: Retention of urine, unspecified. - Condition is Stable. - Discharge Instructions: Acute Urinary Retention, Male. - Medication Reconciliation Form, Thank You Letter, Antibiotic Education, Prescription Opioid Use form. - Follow up: Private Physician; When: Upon discharge from the Emergency Department; Reason: Recheck today's complaints, Continuance of care, Re-evaluation by your physician. Follow up: Yung Mccrary MD; When: Upon discharge from the Emergency Department; Reason: Recheck today's complaints, Continuance of care, Re-evaluation by your physician. Follow up: Nguyen Spencer MD; When: Upon discharge from the Emergency Department; Reason: Recheck today's complaints, Continuance of care, Re-evaluation by your physician. - Problem is new. - Symptoms have improved. Signatures: Dispatcher [employer] EDAK Abdulkadir Robbins RN RN jb4 Wade Dobson MD MD tw4 Corrections: (The following items were deleted from the chart) 04:44 04:40 07/07/2020 04:40 Discharged to Home. Impression: Retention of urine, unspecified. tw4 Condition is Stable. Forms are Medication Reconciliation Form, Thank You Letter, Antibiotic Education, Prescription Opioid Use. Follow up: Private Physician; When: Upon discharge from the Emergency Department; Reason: Recheck today's complaints, Continuance of care, Re-evaluation by your physician. Problem is new. Symptoms have improved. tw4 04:50 04:44 07/07/2020 04:40 Discharged to Home. Impression: Retention of urine, unspecified. jb4 Condition is Stable. Discharge Instructions: Acute Urinary Retention, Male. Forms are Medication Reconciliation Form, Thank You Letter, Antibiotic Education, Prescription Opioid Use. Follow up: Private Physician; When: Upon discharge from the Emergency Department; Reason: Recheck today's complaints, Continuance of care, Re-evaluation by your physician. Follow up: Yung Mccrary; When: Upon discharge from the Emergency Department; Reason: Recheck today's complaints, Continuance of care, Re-evaluation by your physician. Follow up: Nguyen Spencer; When: Upon discharge from the Emergency Department; Reason: Recheck today's complaints, Continuance of care, Re-evaluation by your physician. Problem is new. Symptoms have improved. tw4
[2020-07-07 05:00] VITALS: TEMP 98.2; O2SAT 97
[2020-07-07 05:03] VITALS: BP 131/68
--- NOTE | 2020-07-07 11:56 | RAD REPORT ---
EXAM DESCRIPTION: CT - Abdomen Pelvis W Contrast - 07/07/2020 4:21 am CLINICAL HISTORY: ABD PAIN TECHNIQUE: Contiguous axial images obtained through the abdomen and pelvis following the uneventful administration of IV contrast. Coronal and sagittal reformatted images were provided. This exam was performed according to our departmental dose-optimization program, which includes autom ated exposure control, adjustment of the mA and/or kV according to patient size and/or use of iterati ve reconstruction technique. COMPARISON: 06/23/2019 FINDINGS: Lung bases: Bibasilar subsegmental atelectasis/pleural parenchymal scar. The heart is enla rged. Coronary artery calcification. Liver: Scattered hepatic cysts, the largest right posterior measuring 3.5 cm without significant inte rval change. Gallbladder and biliary system: Unremarkable Pancreas: Mild pancreatic parenchymal atrophy. Spleen: Unremarkable Adrenals: Unremarkable Kidneys: Normal renal cortical enhancement. Bilateral cysts, the largest 2.3 cm partially exophytic a t the anterior mid to lower pole on the right. Additional subcentimeter hypodensities bilaterally whi ch are too small to characterize. No calculi. No hydronephrosis. Bowel: No obstruction. No appreciable mucosal thickening. Appendix: Normal caliber appendix. No findings to suggest acute appendicitis. Urinary bladder: Mild circumferential urinary bladder wall thickening. Reproductive: The prostate is moderately enlarged. Lymph nodes: No pathologically enlarged lymph nodes. Peritoneum: Trace free fluid within the rectovesical space.. No free air. Vessels: Moderate atherosclerotic disease. No abdominal aortic aneurysm. Abdominal wall: Tiny fat-containing umbilical hernia. Bones: Multilevel spondylosis. No acute fracture. 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 IMPRESSION: 1. Mild circumferential urinary bladder wall thickening which may be related to bladde r outlet obstruction. Please correlate clinically for cystitis. 2. Other findings as above. Electronically signed by: Rose Payne MD 07/07/2020 3:56 AM CDT Due to temporary technical issues with the PACS/Fluency reporting system, reports are being signed by the in house radiologist without review as a courtesy to ensure prompt reporting. The interpreting r adiologist is fully responsible for the content of the report.
== END 2020-07-07 04:50 | disposition home or self-care (01) ==
LOC: ER 01:54
DX: R33.9 Retention of urine, unspecified (principal); I10 Essential (primary) hypertension; E78.00 Pure hypercholesterolemia, unspecified
CPT/HCPCS: 85025; 80048; 36415; 80076; 83690; 74177; Q9967; 81003; 81015; 99283

== ENCOUNTER 2020-07-25 03:10 | Emergency (ER) | payer OTHER ==
[2020-07-25] MEDS ORDERED: LIDOCAINE VISCOUS 2% SOLN 15 ML UDC ONE (03:45)
--- NOTE | 2020-07-25 03:59 | EDPHYS ---
Physician Documentation [facility] Name: Brendon Gomez Age: 84 yrs Sex: Male : 1935 Arrival Date: 07/25/2020 Time: 03:12 Bed 7 Private MD: ED Physician Glen Travis HPI: 07/25 03:34 This 84 yrs old Male presents to ER via Wheelchair with complaints of Urinary pkl Problem. 03:34 The patient presents with urinary symptoms, retention. Onset: The symptoms/episode pkl began/occurred today, Last urinated 4 pm yesterday. The patient has experienced a previous episode, approximately 2 weeks ago. Historical: - Allergies: 03:24 No Known Allergies; rv - PMHx: 03:24 High Cholesterol; Hypertension; insomnia; Prostate problem; rv - PSHx: 03:24 None; rv - Immunization history:: Adult Immunizations up to date. - Social history:: Smoking status: Patient denies any tobacco usage or history of. ROS: 03:34 Eyes: Negative for injury, pain, redness, and discharge, ENT: Negative for injury, pkl pain, and discharge, Neck: Negative for injury, pain, and swelling, Cardiovascular: Negative for chest pain, palpitations, and edema, Respiratory: Negative for shortness of breath, cough, wheezing, and pleuritic chest pain. 03:34 Abdomen/GI: Negative for abdominal pain. 03:34 Back: Negative for acute changes. 03:34 : Positive for difficulty urinating. 03:34 MS/extremity: Negative for acute changes. 03:34 Skin: Negative for rash. 03:34 Neuro: Negative for altered mental status. Exam: 03:34 Head/Face: Normocephalic, atraumatic. Eyes: Pupils equal round and reactive to light, pkl extra-ocular motions intact. Lids and lashes normal. Conjunctiva and sclera are non-icteric and not injected. Cornea within normal limits. Periorbital areas with no swelling, redness, or edema. ENT: Nares patent. No nasal discharge, no septal abnormalities noted. Tympanic membranes are normal and external auditory canals are clear. Oropharynx with no redness, swelling, or masses, exudates, or evidence of obstruction, uvula midline. Mucous membranes moist. Neck: Trachea midline, no thyromegaly or masses palpated, and no cervical lymphadenopathy. Supple, full range of motion without nuchal rigidity, or vertebral point tenderness. No Meningismus. Chest/axilla: Normal chest wall appearance and motion. Nontender with no deformity. No lesions are appreciated. Cardiovascular: Regular rate and rhythm with a normal S1 and S2. No gallops, murmurs, or rubs. Normal PMI, no JVD. No pulse deficits. Respiratory: Lungs have equal breath sounds bilaterally, clear to auscultation and percussion. No rales, rhonchi or wheezes noted. No increased work of breathing, no retractions or nasal flaring. 03:34 Abdomen/GI: Bowel sounds: normal, Palpation: Distended bladder. 03:34 Back: Exam negative for acute changes. 03:34 : Bladder: distension, that is moderate. 03:34 Musculoskeletal/extremity: Exam is negative for acute changes. 03:34 Skin: Exam negative for rash. 03:34 Neuro: Exam negative for acute changes. Vital Signs: 03:22 BP 188 / 78; Pulse 64; Resp 16; Temp 98; Pulse Ox 100% ; Weight 54.43 kg; Height 5 ft. rv 4 in. (162.56 cm); 03:22 Body Mass Index 20.60 (54.43 kg, 162.56 cm) rv MDM: 03:16 Patient medically screened. pkl 03:55 Data reviewed: vital signs, nurses notes. ED course: Advised to follow up with his [facility] Urologist in 2 to 3 days. Son said he will make sure he follow up with the Urologist. 07/25 03:33 Order name: Mendez; Complete Time: 03:51 pkl 07/25 03:33 Order name: Mendez Leg Bag; Complete Time: 03:51 pkl Administered Medications: 03:58 Drug: Cipro 250 mg Route: PO; rv 03:58 Follow up: Response: Medication administered at discharge. rv Disposition: 07/25/20 03:58 Discharged to Home. Impression: Urinary retention. - Condition is Stable. - Prescriptions for Cipro 250 mg Oral Tablet - take 1 tablet by ORAL route every 12 hours; 20 tablet. - Medication Reconciliation Form, Thank You Letter, Antibiotic Education, Prescription Opioid Use form. - Follow up: Private Physician; When: 2 - 3 days; Reason: Re-evaluation by your physician. - Problem is new. - Symptoms have improved. Signatures: Glen Travis MD MD pkl Tylor Beckwith RN RN rv Corrections: (The following items were deleted from the chart) 04:03 03:58 07/25/2020 03:58 Discharged to Home. Impression: Urinary retention. Condition is rv Stable. Forms are Medication Reconciliation Form, Thank You Letter, Antibiotic Education, Prescription Opioid Use. Follow up: Private Physician; When: 2 - 3 days; Reason: Re-evaluation by your physician. Problem is new. Symptoms have improved. pkl
--- NOTE | 2020-07-25 03:59 | ER ---
Nurse's Notes [facility] Name: Brendon Gomez Age: 84 yrs Sex: Male : 1935 Arrival Date: 07/25/2020 Time: 03:12 Bed 7 Private MD: Diagnosis: Urinary retention Presentation: 07/25 03:22 Chief complaint: Patient's son or daughter states: "HE IS HAVING PROBLEM WITH HIS rv PROSTATE. LAST TIME HE PEED 4PM YESTERDY. HE SAID HE FEELS HE NEEDS TO GO BUT HE CAN'T.". Coronavirus screen: Client denies travel out of the [place] in the last 14 days. At this time, the client does not indicate any symptoms associated with coronavirus-19. Ebola Screen: No symptoms or risks identified at this time. Initial Sepsis Screen: Does the patient meet any 2 criteria? No. Patient's initial sepsis screen is negative. Does the patient have a suspected source of infection? No. Patient's initial sepsis screen is negative. Risk Assessment: Do you want to hurt yourself or someone else? Patient reports no desire to harm self or others. Onset of symptoms was July 24, 2020 at 16:00. 03:22 Method Of Arrival: Wheelchair rv 03:22 Acuity: ANGELI 3 rv 03:24 Chief complaint: PATIENT WAS SEEN TWO WEEKS AGO. WAS DISCHARGE AND ADVISED TO SEE DR akila TORRES. PATIENT FAILED TO MAKE AN APPOINTMENT WITH DR TORRES. Triage Assessment: 03:25 General: Appears uncomfortable, Behavior is calm, cooperative. Pain: Complains of pain rv in suprapubic area. EENT: No signs and/or symptoms were reported regarding the EENT system. Neuro: Level of Consciousness is awake, alert, obeys commands, Oriented to person, place, time, situation. Cardiovascular: Patient's skin is warm and dry. Respiratory: Airway is patent Respiratory effort is even, unlabored. : Last void was July 24, 2020. at 16:00. Historical: - Allergies: 03:24 No Known Allergies; rv - PMHx: 03:24 High Cholesterol; Hypertension; insomnia; Prostate problem; rv - PSHx: 03:24 None; rv - Immunization history:: Adult Immunizations up to date. - Social history:: Smoking status: Patient denies any tobacco usage or history of. Screenin:27 Abuse screen: Denies threats or abuse. Denies injuries from another. Nutritional rv screening: No deficits noted. Tuberculosis screening: No symptoms or risk factors identified. Fall Risk None identified. Vital Signs: 03:22 BP 188 / 78; Pulse 64; Resp 16; Temp 98; Pulse Ox 100% ; Weight 54.43 kg; Height 5 ft. rv 4 in. (162.56 cm); 03:22 Body Mass Index 20.60 (54.43 kg, 162.56 cm) rv ED Course: 03:12 Patient arrived in ED. cl3 03:16 Glen Travis MD is Attending Physician. pkl 03:21 Tylor Beckwith, RONALD is Primary Nurse. rv 03:24 Triage completed. rv 03:25 Arm band placed on right wrist. Patient placed in the treatment room, on a stretcher, rv Patient notified of wait time. 03:27 Patient has correct armband on for positive identification. Pulse ox on. NIBP on. rv 03:51 Mendez cath inserted, using sterile technique, 16 Fr., by tn, balloon inflated, to rv gravity drainage, returned 400ML. Patient tolerated well. 03:58 No provider procedures requiring assistance completed. IV discontinued. rv Administered Medications: 03:58 Drug: Cipro 250 mg Route: PO; rv 03:58 Follow up: Response: Medication administered at discharge. rv Output: 03:52 Urine: 400ml (Mendez); Total: 400ml. rv Outcome: 03:58 Discharge ordered by . pkl 03:58 Discharged to home via wheelchair. rv 03:58 Condition: improved 03:58 Discharge instructions given to family, Instructed on discharge instructions, follow up and referral plans. [facility] Demonstrated understanding of instructions, follow-up care, [facility] 04:03 Instructed on medication usage, Demonstrated understanding of medications, rv Prescriptions given X 1. 04:03 Patient left the ED. rv Signatures: Glen Travis MD MD pkl Tylor Beckwith, RONALD RN Ofe Rodríguez cl3
[2020-07-25] MEDS ORDERED: CIPROFLOXACIN HCL 500 MG TAB ONE (04:06)
[2020-07-26 15:52] VITALS: BP 188/78; TEMP 98; O2SAT 100
== END 2020-07-25 04:03 | disposition home or self-care (01) ==
LOC: ER 03:10
DX: R33.9 Retention of urine, unspecified (principal); I10 Essential (primary) hypertension; N42.9 Disorder of prostate, unspecified
CPT/HCPCS: 51702; 99284

== ENCOUNTER 2022-11-19 22:37 | Emergency (ER) | payer OTHER ==
[2022-11-19 23:08] LABS: Urine Blood Trace-lysed (Negative); Urine Glucose Negative (Negative); Urine Protein Negative (Negative); Urine pH 6.5 (5.0-7.0)
[2022-11-19] MEDS ORDERED: CEFTRIAXONE 1000 MG/VIAL ONE (23:13)
[2022-11-19 23:28] LABS: Absolute Lymphocytes (CBC) 1.2 K/uL (0.7-4.9); Hematocrit 35.4 % (39.6-49.0); Lymphocytes % 10.9 % (15.3-44.8); RBC Red Blood Cell Count 3.84 M/uL (4.33-5.43)
[2022-11-19] MEDS ORDERED: CIPROFLOXACIN HCL 500 MG TAB ONE (23:28)
[2022-11-19 23:51] LABS: Albumin 3.2 g/dL (3.4-5.0); Bilirubin Total 0.6 mg/dL (0.2-1.0); Potassium 3.7 mmol/L (3.5-5.1); Protein, Total 7.2 g/dL (6.4-8.2)
--- NOTE | 2022-11-19 23:58 | EDPHYS ---
Physician Documentation [facility] Name: Brendon Gomez Age: 87 yrs Sex: Male : 1935 Arrival Date: 11/19/2022 Time: 22:40 Bed 16 Private MD: LULI Physician Jeremy Blackwell HPI: 11/19 22:57 This 87 yrs old Male presents to ER via Wheelchair with complaints of Urinary shikha Problem. 22:57 The patient presents with urinary symptoms, retention. Onset: The symptoms/episode shikha began/occurred today. Modifying factors: The symptoms are alleviated by nothing, the symptoms are aggravated by nothing. Associated signs and symptoms: The patient has no apparent associated signs or symptoms. Severity of symptoms: At their worst the symptoms were moderate, in the emergency department the symptoms are unchanged. The patient has not experienced similar symptoms in the past. Historical: - Allergies: 22:55 No Known Allergies; bb - Home Meds: 22:55 finasteride 5 mg Oral tab [Active]; trazodone 50 mg Oral tab 1-2 tabs as needed for bb insomnia. [Active]; gabapentin oral [Active]; tamsulosin oral [Active]; - PMHx: 22:55 High Cholesterol; Hypertension; insomnia; Prostate problem; bb - Immunization history:: Client reports receiving the 2nd dose of the Covid vaccine. - Social history:: Smoking status: Patient denies any tobacco usage or history of. ROS: 22:58 Constitutional: Negative for fever, chills, and weight loss, Eyes: Negative for injury, shikha pain, redness, and discharge, ENT: Negative for injury, pain, and discharge, Neck: Negative for injury, pain, and swelling, Cardiovascular: Negative for chest pain, palpitations, and edema, Respiratory: Negative for shortness of breath, cough, wheezing, and pleuritic chest pain, Back: Negative for injury and pain, MS/Extremity: Negative for injury and deformity, Skin: Negative for injury, rash, and discoloration, Neuro: Negative for headache, weakness, numbness, tingling, and seizure, Psych: Negative for depression, anxiety, suicide ideation, homicidal ideation, and hallucinations, Allergy/Immunology: Negative for hives, rash, and allergies, Endocrine: Negative for neck swelling, polydipsia, polyuria, polyphagia, and marked weight changes, Hematologic/Lymphatic: Negative for swollen nodes, abnormal bleeding, and unusual bruising. 22:58 Abdomen/GI: Positive for abdominal pain, of the suprapubic area. Exam: 22:58 Constitutional: This is a well developed, well nourished patient who is awake, alert, shikha and in no acute distress. Head/Face: Normocephalic, atraumatic. Eyes: Pupils equal round and reactive to light, extra-ocular motions intact. Lids and lashes normal. Conjunctiva and sclera are non-icteric and not injected. Cornea within normal limits. Periorbital areas with no swelling, redness, or edema. ENT: Nares patent. No nasal discharge, no septal abnormalities noted. Tympanic membranes are normal and external auditory canals are clear. Oropharynx with no redness, swelling, or masses, exudates, or evidence of obstruction, uvula midline. Mucous membranes moist. Neck: Trachea midline, no thyromegaly or masses palpated, and no cervical lymphadenopathy. Supple, full range of motion without nuchal rigidity, or vertebral point tenderness. No Meningismus. Chest/axilla: Normal chest wall appearance and motion. Nontender with no deformity. No lesions are appreciated. Cardiovascular: Regular rate and rhythm with a normal S1 and S2. No gallops, murmurs, or rubs. Normal PMI, no JVD. No pulse deficits. Respiratory: Lungs have equal breath sounds bilaterally, clear to auscultation and percussion. No rales, rhonchi or wheezes noted. No increased work of breathing, no retractions or nasal flaring. Back: No spinal tenderness. No costovertebral tenderness. Full range of motion. Male : Normal genitalia with no discharge or lesions. Skin: Warm, dry with normal turgor. Normal color with no rashes, no lesions, and no evidence of cellulitis. MS/ Extremity: Pulses equal, no cyanosis. Neurovascular intact. Full, normal range of motion. Neuro: Awake and alert, GCS 15, oriented to person, place, time, and situation. Cranial nerves II-XII grossly intact. Motor strength 5/5 in all extremities. Sensory grossly intact. Cerebellar exam normal. Normal gait. Psych: Awake, alert, with orientation to person, place and time. Behavior, mood, and affect are within normal limits. 22:58 Abdomen/GI: Inspection: distension, that is severe, in the suprapubic area, Bowel sounds: normal, in all quadrants, active, all quadrants, Palpation: mild abdominal tenderness, moderate abdominal tenderness, in the suprapubic area, Liver: no appreciated palpable abnormalities, Hernia: not appreciated. Vital Signs: 22:54 BP 161 / 91; Pulse 94; Resp 16 S; Temp 97(O); Pulse Ox 99% on R/A; Weight 49.9 kg (R); bb Height 5 ft. 5 in. (165.10 cm) (R); 23:50 BP 135 / 70; Pulse 78; Resp 18 S; Pulse Ox 100% on R/A; as6 22:54 Body Mass Index 18.30 (49.90 kg, 165.10 cm) bb MDM: 22:42 Patient medically screened. shikha 22:59 Differential diagnosis: nonspecific abdominal pain, UTI, urinary retention. Data shikha reviewed: vital signs, nurses notes, lab test result(s). Data interpreted: Pulse oximetry: on is 99 %. Counseling: I had a detailed discussion with the patient and/or guardian regarding: the historical points, exam findings, and any diagnostic results supporting the discharge/admit diagnosis, lab results, the need for outpatient follow up, for definitive care, a family practitioner, a urologist. 11/19 22:55 Order name: CBC with Diff; Complete Time: 23:31 [facility] 11/19 22:55 Order name: Comprehensive Metabolic Panel; Complete Time: 23:56 [facility] 11/19 22:55 Order name: Urine Culture [facility] 11/19 23:08 Order name: Urine Dipstick-Ancillary; Complete Time: 23:19 [facility] 11/19 22:55 Order name: Urine Dipstick-Ancillary (obtain specimen); Complete Time: 23:07 [facility] 11/19 22:55 Order name: Mendez; Complete Time: 23:02 [facility] 11/19 22:55 Order name: Mendez Leg Bag; Complete Time: 00:26 shikha Administered Medications: 23:14 Drug: Rocephin (cefTRIAXone) 1 grams Route: IV; Rate: per protocol; Site: right hand; as6 23:50 Follow up: Response: No adverse reaction; IV Status: Completed infusion; IV Intake: [id number] 23:29 Drug: Cipro (ciprofloxacin) 500 mg Route: PO; jb4 23:49 Follow up: Response: No adverse reaction as6 Disposition Summary: 11/19/22 23:57 Discharge Ordered Location: Home [facility] Problem: new shikha Symptoms: have improved shikha Condition: Stable shikha Diagnosis - Retention of urine, unspecified - PVR 1000 CC shikha - UTI/ Urinary tract infection, site not specified shikha - Hypo-osmolality and hyponatremia - 129 shikha Followup: shikha - With: Private Physician - When: 2 - 3 days - Reason: Recheck today's complaints, Continuance of care, Re-evaluation by your physician Followup: shikha - With: - When: 2 - 3 days - Reason: Continuance of care Discharge Instructions: - Discharge Summary Sheet shikha - Hyponatremia shikha - Acute Urinary Retention, Male shikha - Acute Urinary Retention, Male, [id number] shikha - Urinary Tract Infection, Adult shikha - Urinary Tract Infection, Adult, Prvr-ut-Avzu shikha - Hyponatremia, [id number] shikha Forms: - Medication Reconciliation Form shikha - Thank You Letter shikha - Antibiotic Education shikha - Prescription Opioid Use shikha Prescriptions: - Cipro 250 mg Oral Tablet - take 1 tablet by ORAL route every 12 hours; 14 tablet; Refills: 0, Product shikha Selection Permitted Signatures: Dispatcher [employer] Jeremy Hernandez MD MD cha Ballard, Brenda, RN RN Abdulkadir Perez RN RN jb4 Priyank Cardona RN RN as6
--- NOTE | 2022-11-19 23:58 | ER ---
Nurse's Notes [facility] Name: Brendon Gomez Age: 87 yrs Sex: Male : 1935 Arrival Date: 11/19/2022 Time: 22:40 Bed 16 Private MD: Diagnosis: Retention of urine, unspecified-PVR 1000 CC;UTI/ Urinary tract infection, site not specified;Hypo-osmolality and hyponatremia-129 Presentation: 11/19 22:54 Chief complaint: Patient's son or daughter states: pt has not urinated all day and is bb c/o abdominal pain. Coronavirus screen: At this time, the client does not indicate any symptoms associated with coronavirus-19. Ebola Screen: No symptoms or risks identified at this time. Initial Sepsis Screen: Does the patient meet any 2 criteria? No. Patient's initial sepsis screen is negative. Does the patient have a suspected source of infection? No. Patient's initial sepsis screen is negative. Risk Assessment: Do you want to hurt yourself or someone else? Patient reports no desire to harm self or others. Onset of symptoms was November 19, 2022. 22:54 Method Of Arrival: Wheelchair bb 22:54 Acuity: ANGELI 3 bb Historical: - Allergies: 22:55 No Known Allergies; bb - Home Meds: 22:55 finasteride 5 mg Oral tab [Active]; trazodone 50 mg Oral tab 1-2 tabs as needed for bb insomnia. [Active]; gabapentin oral [Active]; tamsulosin oral [Active]; - PMHx: 22:55 High Cholesterol; Hypertension; insomnia; Prostate problem; bb - Immunization history:: Client reports receiving the 2nd dose of the Covid vaccine. - Social history:: Smoking status: Patient denies any tobacco usage or history of. Screenin:07 [facility] ED Fall Risk Assessment (Adult) History of falling in the last 3 months, as6 including since admission No falls in past 3 months (0 pts) Confusion or Disorientation No (0 pts) Intoxicated or Sedated No (0 pts) Impaired Gait Yes (1 pt) Mobility Assist Device Used Yes (1 pt) Altered Elimination No (0 pt) Score/Fall Risk Level 0 - 2 = Low Risk. Abuse screen: Denies threats or abuse. Denies injuries from another. Nutritional screening: No deficits noted. Tuberculosis screening: No symptoms or risk factors identified. Assessment: 22:50 General: Appears in no apparent distress. Behavior is calm, cooperative. Pain: as6 Complains of pain in suprapubic area. Neuro: Level of Consciousness is awake, alert, obeys commands, Oriented to person, place, time, situation. Cardiovascular: Capillary refill < 3 seconds Patient's skin is warm and dry. Respiratory: Respiratory effort is even, unlabored. GI: Abdomen is distended. : Parent/caregiver report the patient having inability to void pain in suprapubic area. 23:50 Reassessment: Patient appears in no apparent distress at this time. Patient and/or as6 family updated on plan of care and expected duration. Pain level reassessed. Patient is alert, oriented x 3, equal unlabored respirations, skin warm/dry/pink. Patient states feeling better. 11/20 00:26 Reassessment: Patient appears in no apparent distress at this time. Patient and/or jb4 family updated on plan of care and expected duration. Pain level reassessed. Patient is alert, oriented x 3, equal unlabored respirations, skin warm/dry/pink. Vital Signs: 12 22:54 BP 161 / 91; Pulse 94; Resp 16 S; Temp 97(O); Pulse Ox 99% on R/A; Weight 49.9 kg (R); bb Height 5 ft. 5 in. (165.10 cm) (R); 23:50 BP 135 / 70; Pulse 78; Resp 18 S; Pulse Ox 100% on R/A; as6 22:54 Body Mass Index 18.30 (49.90 kg, 165.10 cm) ED Course: 22:40 Patient arrived in ED. ja2 22:41 Jeremy Blackwell MD is Attending Physician. shikha 22:49 Priyank Cardona, RONALD is Primary Nurse. as6 22:55 Triage completed. bb 22:55 Arm band placed on Patient placed in an exam room, on a stretcher, on pulse oximetry. bb Family accompanied patient. 23:02 Mendez cath inserted, using sterile technique, 16 Fr., by nd, balloon inflated, to as6 gravity drainage, clamped. urine specimen collected. 23:07 Placed in gown. Bed in low position. Call light in reach. Side rails up X 1. Adult w/ as6 patient. 23:07 Urine Culture Sent. as6 23:57 Tobi Stapleton MD is Referral Physician. [facility] 11/20 00:26 No provider procedures requiring assistance completed. IV discontinued, intact, jb4 bleeding controlled, No redness/swelling at site. Pressure dressing applied. Administered Medications: 11/19 23:14 Drug: Rocephin (cefTRIAXone) 1 grams Route: IV; Rate: per protocol; Site: right hand; as6 23:50 Follow up: Response: No adverse reaction; IV Status: Completed infusion; IV Intake: [id number] 23:29 Drug: Cipro (ciprofloxacin) 500 mg Route: PO; jb4 23:49 Follow up: Response: No adverse reaction as6 Medication: 23:08 VIS not applicable for this client. as6 Intake: 23:50 IV: 10ml; Total: 10ml. as6 Outcome: 23:57 Discharge ordered by . [facility] 11/20 00:26 Discharged to home via wheelchair, with family. jb4 Condition: stable Discharge instructions given to patient, Instructed on discharge instructions, follow up and referral plans. medication usage, Demonstrated understanding of instructions, follow-up care, medications, Prescriptions given X 1. 00:27 Patient left the ED. jb4 Signatures: Jeremy Blackwell MD MD cha Ballard, Brenda, RN RN Abdulkadir Perez, RONALD RN jb4 Blossom Ibrahim Ashby, RONALD RN as6
[2022-11-20 01:07] VITALS: TEMP 97
[2022-11-20 01:08] VITALS: BP 135/70; O2SAT 100
== END 2022-11-20 00:27 | disposition home or self-care (01) ==
LOC: ER 22:37
DX: N39.0 Urinary tract infection, site not specified (principal); E87.1 Hypo-osmolality and hyponatremia; I10 Essential (primary) hypertension; E78.00 Pure hypercholesterolemia, unspecified
CPT/HCPCS: 36415; 51702; 80053; 81003; 85025; 87077; 87086; 87088; 87186; 96365; 99284

== ENCOUNTER 2023-05-29 21:22 | Emergency (ER) | payer OTHER ==
[2023-05-29] MEDS ORDERED: EPINEPHrine 1 MG/10 ML SYR IV ONE (21:23)
[2023-05-29] MEDS ORDERED: DOPAMINE/D5W 400 MG/250 ML BAG IV ONE (21:23)
[2023-05-29] MEDS ORDERED: NA CHLORIDE 0.9% 1,000 ML IV ONE (21:23)
[2023-05-29] MEDS ORDERED: ATROPINE SULF 1 MG/10 ML SYR IV ONE (21:23)
--- OUTSIDE RECORDS SUMMARY | 2023-05-29 21:24 | XMS REPORT | Continuity of Care Document ---
:1935 Author Organization [facility] t Address [address] [place] [address] Care Team Providers Name Role Phone Sandy Crawford Attending Clinician Unavailable Problems Condition Condition Condition Status Onset Resolution Last Treating Co mments Source Name Details Category Date Date Treatment Clinician Date [id number] [place] [id number] hypospadia [facility] s [facility] [id number] Urinary Problem Commo n retention [facility] [id number] BPH loc w Problem Com mon urin [facility] obs/TS [facility] Allergies, Adverse Reactions, Alerts This patient has no known allergies or adverse reactions. Social History Social Habit Start Date Stop Date Quantity Comments Source History of Tobacco Use Co mmon [facility] Sex Assigned At Com mon [facility] Smoking Status Start Date Stop Date Source Never Smoker Common [facility] Medications Ordered Filled Start Stop Current Ordering Indication Dosage Frequency Signature Comments Components Source Medication Medication Date Date Medication? Clinician (SIG) Name Name Losartan Losartan No 1{table QD Losartan Potassium Potassium t} Potassium 100 MG 100 MG 100 MG Finasteride Finasteride No 1{table QD Finasterid 5 MG 5 MG t} e 5 MG Gabapentin Gabapentin No 1{capsu QD Gabapentin 300 MG 300 MG le} 300 MG Metoprolol Metoprolol No 1{capsu QD Metoprolol Succinate Succinate le} Succinate 50 MG 50 MG 50 MG traZODone traZODone No 1{table QD traZODone HCl 50 MG HCl 50 MG t_at_be HCl 50 MG dtime_a s_neede d} Flomax 0.4 Flomax 0.4 No 1{capsu QD Flomax 0.4 MG MG le} MG Vital Signs Vital Name Observation Time Observation Value Comments Source height 2022-12-23 08:45:00 64 [in_i] [facility] weight 2022-12-23 08:45:00 140 [lb_av] [facility] temperature 2022-12-23 08:45:00 98.3 [degF] [facility] bmi 2022-12-23 08:45:00 24.03 kg/m2 [facility] oximetry 2022-12-23 08:45:00 96 % [facility] blood pressure 2022-12-23 08:45:00 155 mm[Hg] [facility] - systolic [facility] blood pressure 2022-12-23 08:45:00 73 mm[Hg] [facility] - diastolic [facility] Procedures This patient has no known procedures. Encounters Start End Encounter Admission Attending Care Care Encounter Source Date/Time Date/Time Type Type Clinicians Facility Department ID 2022-12-23 Out[facility] [id number] [id number] [facility] 2022-12-23 2022-12-23 OFFICE [facility] [id number] Co mmon 00:00:00 00:00:00 VISIT NEW [facility] PT LEVEL 3 - [facility] Results This patient has no known results.
[2023-05-29] MEDS ORDERED: NOREPINEPHRINE BITARTRATE/D5W 4 MG/250 ML BAG IV ONE ×2 (21:41→23:38)
[2023-05-29 22:07] LABS: Arterial Blood Carboxyhemoglob 0.2 % (0-1.5); Blood Gas Oxyhemoglobin 77.3 % (94-97); Blood O2 Saturation 79.1 % (92-98.5)
[2023-05-29 22:09] LABS: Absolute Lymphocytes (CBC) 1.7 K/uL (0.7-4.9); Hematocrit 20.7 % (39.6-49.0); Lymphocytes % 24.8 % (15.3-44.8); MCV 95.3 fL (80-100); MPV 7.7 fL (7.6-11.3); RBC Red Blood Cell Count 2.17 M/uL (4.33-5.43)
[2023-05-29 22:35] LABS: Albumin 1.5 g/dL (3.4-5.0); Bilirubin Direct 0.3 mg/dL (0-0.2); Bilirubin Indirect, Calculated 0.5 mg/dL (0.2-0.8); Bilirubin Total 0.8 mg/dL (0.2-1.0); Magnesium 2.3 mg/dL (1.6-2.4); Potassium 4.8 mEq/L (3.5-5.1); Protein, Total 4.2 g/dL (6.4-8.2); Troponin High Sensitivity 194.1 pg/mL (<58.9)
--- NOTE | 2023-05-29 22:36 | RAD REPORT ---
EXAM DESCRIPTION: Paulot Single View05/29/2023 10:19 pm CLINICAL HISTORY: cardiac arrest COMPARISON: Chest Single View dated 06/23/2019; Chest Pa And Lat (2 Views) dated 02/27/2018; CHEST PA AN D LAT 2 VIEW dated 12/29/2015; CHEST PA AND LAT 2 VIEW dated 06/17/2015 TECHNIQUE: Portable AP view of the chest. FINDINGS: Endotracheal tube has been placed with its tip at the level of the gabrielle. Perihilar patch y airspace opacification more pronounced on the left, and extending to the left base. No pneumothora x or effusion. The cardiomediastinal contours are unremarkable. IMPRESSION: 1. Endotracheal tube tip present at the level of the gabrielle. 2. Perihilar patchy airspace opacification, could relate to central congestion or aspiration.
--- NOTE | 2023-05-29 22:41 | EDPHYS ---
Physician Documentation [facility] Name: Brendon Gomez Age: 87 yrs Sex: Male : 1935 Arrival Date: 05/29/2023 Time: 21:22 Bed 3 Private MD: ED Physician Benigno Sarabia HPI: 05/29 23:35 This 87 yrs old Male presents to ER via EMS with complaints of Cardiac arrest. kdr 23:35 Family states that the patient was visited in his usual state of health this morning, kdr through the day seem to be more fatigued and not feeling right. This evening, they were feeding him a soft diet and some sleeping medication when he suddenly seemed to stop breathing. 911 was called at that time. When EMS arrived, the patient was unresponsive and in pulmonary arrest. Soon after their arrival the patient also went into cardiac arrest. Over the subsequent 40 minutes, the EMS crew administered epinephrine x3 through a IO access in the left anterior superior tibia. EMS relates that they had either PEA or asystole the whole time that they were at managing the patient. Patient was intubated without problem at the scene and presented to the ED with an ET tube in place and with adequate ventilation. The family denies that the patient has had any bloody stools or black tarry stools. Apparently had had a small amount of clear mostly clear jelly from his rectum within the last few days. The family also relates that over the past year his ability to swallow and eat has diminished. He has had some weight loss though unknown total. But he has had significant diminishment in his nutrition secondary to difficulty swallowing. Apparently patient's not had any specific work-up for this situation. Onset: The symptoms/episode began/occurred suddenly, just prior to arrival. Severity of symptoms: At their worst the symptoms were incapacitating in the emergency department the symptoms are unchanged. The patient has not experienced similar symptoms in the past. The patient has not recently seen a physician. Historical: - Allergies: 22:30 Unable to obtain; jb4 - PMHx: 22:30 Hypetension; Enlarged prostate; jb4 - Immunization history:: Adult Immunizations unknown. - Social history:: Smoking status: unknown. ROS: 23:35 Constitutional: Unable to obtain secondary to his unresponsiveness kdr 23:35 Unable to obtain ROS due to patient is on ventilator. Exam: 23:35 Constitutional: This is a well developed, poorly nourished patient who is intubated kdr and on a respirator without any spontaneous respirations. Initially it is noted that his pupils are fixed and dilated. Patient had not received atropine at the time of the initial evaluation. Head/Face: Normocephalic, atraumatic. ENT: Nares patent. No nasal discharge, no septal abnormalities noted. Tympanic membranes are normal and external auditory canals are clear. Oropharynx with no redness, swelling, or masses, exudates, or evidence of obstruction, uvula midline. Mucous membranes moist. 23:35 Neck: Trachea midline, no thyromegaly or masses palpated, and no cervical lymphadenopathy. Supple, full range of motion without nuchal rigidity, or vertebral point tenderness. No Meningismus. Chest/axilla: Normal chest wall appearance and motion. Nontender with no deformity. No lesions are appreciated. Cardiovascular: Regular rate and rhythm with a normal S1 and S2. No gallops, murmurs, or rubs. Normal PMI, no JVD. No pulse deficits. Abdomen/GI: Soft, non-tender, with normal bowel sounds. No distension or tympany. No guarding or rebound. No evidence of tenderness throughout. Skin: Warm, dry with normal turgor. Normal color with no rashes, no lesions, and no evidence of cellulitis. MS/ Extremity: Pulses equal, no cyanosis. Neurovascular intact. Full, normal range of motion. 23:35 Eyes: Pupils: are fixed and dilated. 23:35 Respiratory: the patient does not display signs of respiratory distress, Respirations: normal, Breath sounds: rales, that are mild, are scattered, Patient is being ventilated without spontaneous respirations. Vital Signs: 21:23 Pulse 0; jb4 22:21 BP 84 / 51; Pulse 126; Resp 16 A; Temp 93.7(Ca); Pulse Ox 100% on 100% FiO2 ETT vent; jb4 Weight 53 kg; 22:45 BP 84 / 45; Pulse 124; Resp 16 A; Temp 93.1(Ca); Pulse Ox 100% on 100% FiO2 ETT vent; jb4 23:11 BP 65 / 30; Pulse 126; Resp 16; Temp 92.9(Ca); Pulse Ox 99% on 100% FiO2 ETT vent; jb4 23:15 BP 64 / 48; Pulse 126; Resp 16 A; Temp 93(Ca); Pulse Ox 99% on 100% FiO2 ETT vent; jb4 23:15 BP 64 / 48; Pulse 126; Resp 16 A; Temp 93.0(Ca); Pulse Ox 98% on 100% FiO2 ETT vent; jb4 23:20 BP 61 / 40; Pulse 127; Resp 16 A; Temp 93.1(Ca); Pulse Ox 97% on 100% FiO2 ETT vent; jb4 23:26 BP 61 / 50; Pulse 127; Resp 16 A; Temp 93.2(Ca); Pulse Ox 96% on 100% FiO2 ETT vent; jb4 23:30 BP 61 / 42; Pulse 127; Resp 16 A; Pulse Ox 97% on 100% FiO2 ETT vent; jb4 23:45 BP 63 / 45; Pulse 131; Resp 16 A; Temp 93.9(Ca); Pulse Ox 95% on 100% FiO2 ETT vent; jb4 23:45 BP 63 / 45; Pulse 131; Resp 16 A; Temp 93.9; Pulse Ox 95% on 100% FiO2 ETT vent; jb4 23:50 BP 71 / 52; Pulse 132; Resp 16 A; Temp 94.1(Ca); Pulse Ox 95% on 100% FiO2 ETT vent; 4 05/30 00:05 BP 74 / 53; Pulse 135; Resp 16 A; Temp 94.5(Ca); Pulse Ox 95% on 100% FiO2 ETT vent; jb4 00:10 BP 77 / 57; Pulse 137; Resp 16; Temp 94.9(Ca); Pulse Ox 94% on 100% FiO2 ETT vent; jb4 00:11 BP 67 / 35; Pulse 136; Resp 16 A; Temp 94.1(Ca); Pulse Ox 95% on 100% FiO2 ETT vent; jb4 00:20 BP 74 / 52; Pulse 138; Resp 16 A; Temp 95.1(Ca); Pulse Ox 94% on 100% FiO2 ETT vent; jb4 00:25 BP 71 / 49; Pulse 139; Resp 16 A; Temp 95.3(Ca); Pulse Ox 94% on 100% FiO2 ETT vent; jb4 Procedures: 05/29 23:35 Central Line: the site was prepped with Betadine, in sterile fashion, a triple lumen kdr catheter was inserted, in the right femoral vein, in 2 attempts. placement was verified, by blood return, the site was dressed with Tegaderm, using sterile technique, the patient tolerated the procedure, well. MDM: 22:40 Patient medically screened. kdr 23:35 Data reviewed: vital signs, nurses notes, lab test result(s), radiologic studies. kdr 23:35 ED course: In discussion with the family they agreed to not add any further pressors to kdr the patient's regimen. We will max out these agents and to let nature take its course after that. Additionally the family did not want any CPR or heroic measures done should the patient arrest again. The patient is officially DNR per family request. The son also did refuse the transfusion of 2 units of blood.. 05/29 21:45 Order name: Basic Metabolic Panel; Complete Time: 23:09 kdr 05/29 21:45 Order name: CBC with Diff; Complete Time: 23: kdr 05/29 21:45 Order name: LFT's; Complete Time: 23: kdr 05/29 21:45 Order name: Magnesium; Complete Time: 23:09 kdr 05/29 21:45 Order name: NT PRO-BNP; Complete Time: 23:09 kdr 05/29 21:45 Order name: Troponin HS; Complete Time: 23:09 kdr 05/29 21:45 Order name: ABG; Complete Time: 23:44 kdr 05/29 22:25 Order name: Blood Culture Adult (2) la05/29 22:25 Order name: Lactate w/ 2H reflex if indic.; Complete Time: 23:09 la05/29 22:25 Order name: Procalcitonin la05/29 22:25 Order name: Type And Screen la05/29 23:11 Order name: ABO/RH no charge; Complete Time: 23:24 EDMS 05/29 21:45 Order name: XRAY Chest (1 view); Complete Time: 23:09 kdr 05/29 21:45 Order name: EKG; Complete Time: 21:46 kdr 05/29 21:45 Order name: Cardiac monitoring; Complete Time: 22:21 kdr 05/29 21:45 Order name: EKG - Nurse/Tech; Complete Time: 22:21 kdr 05/29 21:45 Order name: IV Saline Lock; Complete Time: 22:21 kdr 05/29 21:45 Order name: Labs collected and sent; Complete Time: 22:21 kdr 05/29 21:45 Order name: O2 Per Protocol; Complete Time: 22:21 kdr 05/29 21:45 Order name: O2 Sat Monitoring; Complete Time: 22:21 kdr 05/29 22:50 Order name: Misc. Order: Bear Hugger - warming blanket; Complete Time: :57 kdr 05/29 22:51 Order name: Mendez: Edgar to temp probe; Complete Time: :57 kdr 05/30 00:56 Order name: Misc. Order: Withdraw all life support and care; Complete Time: 00:59 kdr Administered Medications: 05/30 00:40 Discontinued: Norepinephrine IV 0.1 mcg/kg/min IV at calculated rate See Administration jb4 Instructions; (Standard concentration 4 mg / 250 mL D5W); Recommended max rate 3 mcg/kg/min; Titrate 0.05 mcg/kg/min as often as every 5 minutes to achieve goal (see titration policy); Goal parameter MAP greater than 65 mmHg. 00:40 Discontinued: DOPamine 0.5 mcg/kg/min IV at calculated rate continuous; Titrate to SBP jb4 > = 100 05/29 21:24 Drug: EPINEPHrine 1:10,000 IVP 1 mg {Note: Left IO.} Route: IVP; Site: Other; jb4 21:25 Drug: Sodium Bicarbonate IVP 1 amp {Note: Left IO.} Route: IVP; Site: Other; jb4 21:27 Drug: EPINEPHrine 1:10,000 IVP 1 mg {Note: Left IO.} Route: IVP; Site: Other; jb4 21:28 Drug: Sodium Bicarbonate IVP 1 amp {Note: Left IO.} Route: IVP; Site: Other; jb4 21:36 Drug: Atropine IVP 1 mg {Note: Left IO.} Route: IVP; Site: Other; jb4 21:36 Drug: Norepinephrine IV 0.1 mcg/kg/min {Note: Left IO.} Route: IV; Rate: calculated jb4 rate; Site: Other; 21:48 Follow up: Changed to Right femoral Central line once line established. jb4 22:00 Follow up: Rate change 0.5 mcg/kg/min jb4 23:11 Follow up: BP 65 / 30; Pulse 126 bpm; Resp 16 bpm; Temp 92.9 Catheter; Pulse Ox 99% jb4 FiO2 100% Vent; Rate change 0.6 mcg/kg/min 23:15 Follow up: BP 64 / 48; Pulse 126 bpm; Resp 16 bpm Assisted; Temp 93.0 Catheter; Pulse jb4 Ox 98% FiO2 100% Vent; Rate change 0.65 mcg/kg/min 23:20 Follow up: BP 61 / 40; Pulse 127 bpm; Resp 16 bpm Assisted; Temp 93.1 Catheter; Pulse jb4 Ox 97% FiO2 100% Vent 23:26 Follow up: BP 61 / 50; Pulse 127 bpm; Resp 16 bpm Assisted; Temp 93.2 Catheter; Pulse jb4 Ox 96% FiO2 100% Vent; Rate change 0.8 mcg/kg/min 23:30 Follow up: BP 61 / 42; Pulse 127 bpm; Resp 16 bpm Assisted; Pulse Ox 97% FiO2 100% jb4 Vent; Rate change 0.085 mcg/kg/min 23:45 Follow up: BP 63 / 45; Pulse 131 bpm; Resp 16 bpm Assisted; Temp 93.9; Pulse Ox 95% jb4 FiO2 100% Vent; Rate change 0.95 mcg/kg/min 23:50 Follow up: BP 71 / 52; Pulse 132 bpm; Resp 16 bpm Assisted; Temp 94.1 Catheter; Pulse jb4 Ox 95% FiO2 100% Vent; Rate change 1 mcg/kg/min 07/10 00:05 Follow up: BP 74 / 53; Pulse 135 bpm; Resp 16 bpm Assisted; Temp 94.5 Catheter; Pulse jb4 Ox 95% FiO2 100% Vent; Rate change 1.05 mcg/kg/min 00:11 Follow up: BP 67 / 35; Pulse 136 bpm; Resp 16 bpm Assisted; Temp 94.1 Catheter; Pulse jb4 Ox 95% FiO2 100% Vent; Rate change 1.1 mcg/kg/min 00:20 Follow up: BP 74 / 52; Pulse 138 bpm; Resp 16 bpm Assisted; Temp 95.1 Catheter; Pulse jb4 Ox 94% FiO2 100% Vent; Rate change 1.15 mcg/kg/min 00:25 Follow up: BP 71 / 49; Pulse 139 bpm; Resp 16 bpm Assisted; Temp 95.3 Catheter; Pulse jb4 Ox 94% FiO2 100% Vent; Rate change 1.2 mcg/kg/min 05/29 21:50 Drug: NS 0.9% IV 1000 ml Route: IV; Rate: 1 bolus; Site: right femoral; jb4 22:15 Drug: Sodium Bicarbonate IVP 2 amp Route: IVP; Site: right femoral; jb4 22:15 Drug: DOPamine 0.5 mcg/kg/min Route: IV; Rate: calculated rate; Site: right femoral; jb4 22:45 Follow up: BP 84 / 45; Pulse 124 bpm; Resp 16 bpm Assisted; Temp 93.1 Catheter; Pulse jb4 Ox 100% FiO2 100% Vent; Rate change 20 mcg/kg/min 23:46 Drug: Calcium Gluconate IVPB 2 grams Route: IVPB; Infused Over: 60 mins; Site: right jb4 femoral; Disposition: 05/30 01:11 . kdr Disposition Summary: 05/30/23 01:12 Patient Location: Home(05/30/23 01:12) kdr Pronouncing Physician: Benigno Sarabia kdr Time of : 01:05 05/30/2023 kdr Diagnosis - Cardiopulmonary arrest, anemia, metabolic acidosis kdr Signatures: Dispatcher [employer] EDIA Benigno Sarabia MD MD kdr Timothy Painter FNP-C [employer] Abdulkadir Robbins, RN RN Philippe Archuleta RN RN bp Corrections: (The following items were deleted from the chart) 05/29 22:26 21:23 Allergies: Morphine; bp bp 22:31 21:23 Allergies: Unable to obtain; bp jb4 22:31 21:23 PMHx: Hypertension; bp jb4 22:31 21:23 PMHx: High Cholesterol; bp jb4 22:31 21:23 PMHx: insomnia; bp jb4 22:31 21:23 PMHx: Prostate problem; bp jb4 22:31 21:23 Immunization history: Adult Immunizations unknown, bp jb4 22:31 21:23 Social history: Smoking status: unknown bp jb4 05/30 00:45 05/29 22:38 Packed RBC Leukored ordered. [facility] EDIA 05/30 01:11 05/29 22:40 Inpatient Admission kdr kdr 05/30 01:11 05/29 22:40 Kip Glover kdr kdr 05/30 01:05/29 22:40 Intensive Care Unit kdr kdr 05/30 01:05/29 22:40 Critical kdr kdr 05/30 01:05/29 22:40 new kdr kdr 05/30 01:05/29 22:40 have improved kdr kdr 05/30 01:05/29 22:40 Standard kdr kdr 05/30 01:05/29 22:40 kdr kdr 05/30 01:05/29 22:40 Cardiopulmonary arrest, hypocalcemia, anemia, acidosis kdr kdr
--- NOTE | 2023-05-29 22:41 | ER ---
Nurse's Notes [facility] Name: Brendon Gomez Age: 87 yrs Sex: Male : 1935 Arrival Date: 05/29/2023 Time: 21:22 Bed 3 Private MD: Diagnosis: Cardiopulmonary arrest, anemia, metabolic acidosis Presentation: 05/29 21:23 Chief complaint: EMS states: Family was with pt around 1899. Noticed the pt was not jb4 eating well when they were trying to feed him. Around 1999 EMS was called due to difficulty breathing. Upon arrival pt was in Respiratory arrest with a pulse. Rhythm at that time was an idioventricular rhythm. Pt went into asystole, CPR started at 2056. Pt given 3 rounds of Epi. Pt went to PEA, CPR continued, went back into Asystole. 21:23 Coronavirus screen: Client presents with at least one sign or symptom that may indicate jb4 coronavirus-19. Ebola Screen: No symptoms or risks identified at this time. Initial Sepsis Screen: Does the patient meet any 2 criteria? No. Patient's initial sepsis screen is negative. Does the patient have a suspected source of infection? No. Patient's initial sepsis screen is negative. Risk Assessment: Do you want to hurt yourself or someone else? Unable to obtain. 21:23 Acuity: ANGELI 1 jb4 21:23 Method Of Arrival: EMS: [facility] jb4 Triage Assessment: 21:23 General: Appears CPR in progress. Behavior is unresponsive. Neuro: Level of jb4 Consciousness is unresponsive. Respiratory: Airway via oral intubation. Historical: - Allergies: 22:30 Unable to obtain; jb4 - PMHx: 22:30 Hypetension; Enlarged prostate; jb4 - Immunization history:: Adult Immunizations unknown. - Social history:: Smoking status: unknown. Assessment: 21:26 Reassessment: Pulse check, remains in asystole. jb4 21:29 Reassessment: Pulse check, Pt now has a pulse. Remains intubated and unresponsive. jb4 23:11 Reassessment: 2 more warm blankets applied to pt due to temp dropping. Bear hugger jb4 remains in place. Pt remains unresponsive. Tubes Remain inplace. IV fluids flowing without difficulty. 23:45 Reassessment: Pt's son request that blood not be given. stating "If it is his time to jb4 go, just let him go. He can have what you are currently giving. Please don't add anything else." Provider notified, son signed blood refusal form. 05/30 00:16 Reassessment: IV fluids continue to infuse without difficulty. Pt remains intubated and jb4 unresponsive. Bear hugger remains in place. Family remains at the bed side. 00:40 Reassessment: Son wishes to widraw care. Asked that drips be discontinued and pt be jb4 taken of the vent. Stating" It is his time to go, so lets let him go. The Dr. has said he cannot survive this, all we are doing is dragging it out. Lets let him go." Provider notified. Explained to pt's family what will happen if interventions are stopped. Pt's son verbalized understanding. Continues to want to withdraw care. 01:05 Reassessment: ER physician Reports time of at 0105. jb4 03:32 Reassessment: Pt transported out by undertaker to families' requested home. jb4 Vital Signs: 05/29 21:23 Pulse 0; jb4 22:21 BP 84 / 51; Pulse 126; Resp 16 A; Temp 93.7(Ca); Pulse Ox 100% on 100% FiO2 ETT vent; jb4 Weight 53 kg; 22:45 BP 84 / 45; Pulse 124; Resp 16 A; Temp 93.1(Ca); Pulse Ox 100% on 100% FiO2 ETT vent; jb4 23:11 BP 65 / 30; Pulse 126; Resp 16; Temp 92.9(Ca); Pulse Ox 99% on 100% FiO2 ETT vent; jb4 23:15 BP 64 / 48; Pulse 126; Resp 16 A; Temp 93(Ca); Pulse Ox 99% on 100% FiO2 ETT vent; jb4 23:15 BP 64 / 48; Pulse 126; Resp 16 A; Temp 93.0(Ca); Pulse Ox 98% on 100% FiO2 ETT vent; jb4 23:20 BP 61 / 40; Pulse 127; Resp 16 A; Temp 93.1(Ca); Pulse Ox 97% on 100% FiO2 ETT vent; jb4 23:26 BP 61 / 50; Pulse 127; Resp 16 A; Temp 93.2(Ca); Pulse Ox 96% on 100% FiO2 ETT vent; jb4 23:30 BP 61 / 42; Pulse 127; Resp 16 A; Pulse Ox 97% on 100% FiO2 ETT vent; jb4 23:45 BP 63 / 45; Pulse 131; Resp 16 A; Temp 93.9(Ca); Pulse Ox 95% on 100% FiO2 ETT vent; jb4 23:45 BP 63 / 45; Pulse 131; Resp 16 A; Temp 93.9; Pulse Ox 95% on 100% FiO2 ETT vent; jb4 23:50 BP 71 / 52; Pulse 132; Resp 16 A; Temp 94.1(Ca); Pulse Ox 95% on 100% FiO2 ETT vent; jb4 05/30 00:05 BP 74 / 53; Pulse 135; Resp 16 A; Temp 94.5(Ca); Pulse Ox 95% on 100% FiO2 ETT vent; jb4 00:10 BP 77 / 57; Pulse 137; Resp 16; Temp 94.9(Ca); Pulse Ox 94% on 100% FiO2 ETT vent; jb4 00:11 BP 67 / 35; Pulse 136; Resp 16 A; Temp 94.1(Ca); Pulse Ox 95% on 100% FiO2 ETT vent; jb4 00:20 BP 74 / 52; Pulse 138; Resp 16 A; Temp 95.1(Ca); Pulse Ox 94% on 100% FiO2 ETT vent; jb4 00:25 BP 71 / 49; Pulse 139; Resp 16 A; Temp 95.3(Ca); Pulse Ox 94% on 100% FiO2 ETT vent; jb4 ED Course: 05/29 21:23 Arm band placed on right wrist. jb4 21:27 Patient arrived in ED. la1 21:45 Benigno Sarabia MD is Attending Physician. kdr 21:48 Assisted provider with central line placement. Set up central line tray. Triple lumen jb4 line placed in right femoral. Line placed by Timothy DUQUE Placement verified by blood return, Dressed with Tegaderm, Blood was collected. Assisted provider with intubation Pt intubated by EMS. Verified by Chest x-ray and RT. Placement is 26 at the lip, tube size 7.5mm. 22:00 Mendez cath inserted, using sterile technique, 16 Fr., by tn, balloon inflated, to jb4 gravity drainage, returned bloody urine. 22:21 XRAY Chest (1 view) In Process Unspecified. EDMS 22:25 Triage completed. bp 22:29 Abdulkadir Robbins, RONALD is Primary Nurse. jb4 22:40 Kip Glover MD is Hospitalizing Provider. kdr 05/30 01:11 Benigno Sarabia MD is Pronouncing Provider. kdr 01:32 Called for Technology Consultant. rv1 Administered Medications: 00:40 Discontinued: Norepinephrine IV 0.1 mcg/kg/min IV at calculated rate See Administration jb4 Instructions; (Standard concentration 4 mg / 250 mL D5W); Recommended max rate 3 mcg/kg/min; Titrate 0.05 mcg/kg/min as often as every 5 minutes to achieve goal (see titration policy); Goal parameter MAP greater than 65 mmHg. 00:40 Discontinued: DOPamine 0.5 mcg/kg/min IV at calculated rate continuous; Titrate to SBP jb4 > = 100 05/29 21:24 Drug: EPINEPHrine 1:10,000 IVP 1 mg {Note: Left IO.} Route: IVP; Site: Other; jb4 21:25 Drug: Sodium Bicarbonate IVP 1 amp {Note: Left IO.} Route: IVP; Site: Other; jb4 21:27 Drug: EPINEPHrine 1:10,000 IVP 1 mg {Note: Left IO.} Route: IVP; Site: Other; jb4 21:28 Drug: Sodium Bicarbonate IVP 1 amp {Note: Left IO.} Route: IVP; Site: Other; jb4 21:36 Drug: Atropine IVP 1 mg {Note: Left IO.} Route: IVP; Site: Other; jb4 21:36 Drug: Norepinephrine IV 0.1 mcg/kg/min {Note: Left IO.} Route: IV; Rate: calculated jb4 rate; Site: Other; 21:48 Follow up: Changed to Right femoral Central line once line established. jb4 22:00 Follow up: Rate change 0.5 mcg/kg/min jb4 23:11 Follow up: BP 65 / 30; Pulse 126 bpm; Resp 16 bpm; Temp 92.9 Catheter; Pulse Ox 99% jb4 FiO2 100% Vent; Rate change 0.6 mcg/kg/min 23:15 Follow up: BP 64 / 48; Pulse 126 bpm; Resp 16 bpm Assisted; Temp 93.0 Catheter; Pulse jb4 Ox 98% FiO2 100% Vent; Rate change 0.65 mcg/kg/min 23:20 Follow up: BP 61 / 40; Pulse 127 bpm; Resp 16 bpm Assisted; Temp 93.1 Catheter; Pulse jb4 Ox 97% FiO2 100% Vent 23:26 Follow up: BP 61 / 50; Pulse 127 bpm; Resp 16 bpm Assisted; Temp 93.2 Catheter; Pulse jb4 Ox 96% FiO2 100% Vent; Rate change 0.8 mcg/kg/min 23:30 Follow up: BP 61 / 42; Pulse 127 bpm; Resp 16 bpm Assisted; Pulse Ox 97% FiO2 100% jb4 Vent; Rate change 0.085 mcg/kg/min 23:45 Follow up: BP 63 / 45; Pulse 131 bpm; Resp 16 bpm Assisted; Temp 93.9; Pulse Ox 95% jb4 FiO2 100% Vent; Rate change 0.95 mcg/kg/min 23:50 Follow up: BP 71 / 52; Pulse 132 bpm; Resp 16 bpm Assisted; Temp 94.1 Catheter; Pulse jb4 Ox 95% FiO2 100% Vent; Rate change 1 mcg/kg/min 07 00:05 Follow up: BP 74 / 53; Pulse 135 bpm; Resp 16 bpm Assisted; Temp 94.5 Catheter; Pulse jb4 Ox 95% FiO2 100% Vent; Rate change 1.05 mcg/kg/min 00:11 Follow up: BP 67 / 35; Pulse 136 bpm; Resp 16 bpm Assisted; Temp 94.1 Catheter; Pulse jb4 Ox 95% FiO2 100% Vent; Rate change 1.1 mcg/kg/min 00:20 Follow up: BP 74 / 52; Pulse 138 bpm; Resp 16 bpm Assisted; Temp 95.1 Catheter; Pulse jb4 Ox 94% FiO2 100% Vent; Rate change 1.15 mcg/kg/min 00:25 Follow up: BP 71 / 49; Pulse 139 bpm; Resp 16 bpm Assisted; Temp 95.3 Catheter; Pulse jb4 Ox 94% FiO2 100% Vent; Rate change 1.2 mcg/kg/min 05/29 21:50 Drug: NS 0.9% IV 1000 ml Route: IV; Rate: 1 bolus; Site: right femoral; jb4 22:15 Drug: Sodium Bicarbonate IVP 2 amp Route: IVP; Site: right femoral; jb4 22:15 Drug: DOPamine 0.5 mcg/kg/min Route: IV; Rate: calculated rate; Site: right femoral; jb4 22:45 Follow up: BP 84 / 45; Pulse 124 bpm; Resp 16 bpm Assisted; Temp 93.1 Catheter; Pulse jb4 Ox 100% FiO2 100% Vent; Rate change 20 mcg/kg/min 23:46 Drug: Calcium Gluconate IVPB 2 grams Route: IVPB; Infused Over: 60 mins; Site: right jb4 femoral; Intake: Outcome: 22:40 Decision to Hospitalize by Provider. kdr 05/30 03:33 Patient : Time of 01:05 Pronounced by Benigno Sarabia MD Body to 4 home. 03:34 Patient left the ED. 4 Signatures: Dispatcher [employer] EDMS Benigno Sarabia MD MD kdr Timothy Painter, GRADING CLERK-C GRADING CLERK-Cla1 Abdulkadir Robbins RN RN jb4 Philippe Knowles RN RN bp Joselin Burroughs rv1 Corrections: (The following items were deleted from the chart) 05/29 22:26 21:23 Allergies: Morphine; bp bp 22:27 22:21 BP 84 / 51; Pulse 126bpm; Resp 16bpm; Assisted; Pulse Ox 100% FiO2 100% vent; bp bp 22:30 21:23 Chief complaint: EMS states: Family was with pt around 190. Noticed the pt was jb4 not eating well when they were trying to feed him. Around 1999 EMS was called due to difficulty breathing. Upon arrival pt was in Respiratory arrest with a pulse. Rhythm at that time was an idioventricular rhythm. Pt went into asystole, CPR started at 2056. Pt given 3 rounds of Epi. Pt went to PEA, CPR continued, went back into Asystole. bp 22:30 21:23 Coronavirus screen: Client presents with at least one sign or symptom that may jb4 indicate coronavirus-19. bp 22:30 21:23 Ebola Screen: No symptoms or risks identified at this time. bp jb4 22:30 21:23 Initial Sepsis Screen: Does the patient meet any 2 criteria? No. Patient's jb4 initial sepsis screen is negative. Does the patient have a suspected source of infection? No. Patient's initial sepsis screen is negative. bp 22:30 21:23 Onset of symptoms was May 29, 2023 bp jb4 22:30 21:23 Transition of care: patient was not received from another setting of care. bp jb4 22:30 21:23 Method Of Arrival: EMS: [facility] bp jb4 22:30 21:23 Pulse 0bpm; bp jb4 22:30 21:23 Acuity: ANGELI 1 bp jb4 22:31 21:23 Allergies: Unable to obtain; bp jb4 22:31 21:23 PMHx: Hypertension; bp jb4 22:31 21:23 PMHx: High Cholesterol; bp jb4 22:31 21:23 PMHx: insomnia; bp jb4 22:31 21:23 PMHx: Prostate problem; bp jb4 22:31 21:23 Immunization history: Adult Immunizations unknown, bp jb4 22:31 21:23 Social history: Smoking status: unknown bp jb4 22:32 21:23 General: Appears CPR in progress. Behavior is unresponsive. bp jb4 22:32 21:23 Neuro: Level of Consciousness is unresponsive, bp jb4 22:32 21:23 Respiratory: Airway via oral intubation bp jb4 22:33 22:21 BP 84 / 51; Pulse 126bpm; Resp 16bpm; Assisted; Pulse Ox 100% FiO2 100% vent; jb4 Temp 93.7F Catheter; bp 22:33 21:23 Arm band placed on right wrist. bp jb4 22:39 22:39 EPINEPHrine 1:10,000 IVP 1:10,000 1 mg IVP in Other; Left IO jb4 jb4 23:00 21:48 Assisted provider with central line placement. Set up central line tray. Triple jb4 lumen line placed in right femoral. Placement verified by blood return, Dressed with Tegaderm, Blood was collected. Assisted provider with intubation Pt intubated by EMS. Verified by Chest x-ray and RT. Placement is 26 at the lip, tube size 7.5mm jb4 05/30 00:59 00:40 Reassessment: Son wishes to widraw care. Asked that drips be discontinued and pt jb4 be taken of the vent. Stating" It is his time to go, so lets let him go. The Dr. has said he cannot survive this, all we are doing is dragging it out. Lets let him go." Provider notified. jb4
[2023-05-29] MEDS ORDERED: CALCIUM GLUCONATE 1 GM IVPB 2 GM/100 ML BAG IV ONE (23:42)
[2023-05-30 04:38] VITALS: O2SAT 95
[2023-05-30 05:16] VITALS: BP 67/35; TEMP 94.1
--- NOTE | 2023-05-30 17:11 | EKG ---
Test Date: 2023-05-29 Test Time: 22:03:43 Digital Marketing Strategist: RV MEASUREMENT RESULTS: Intervals: Rate: 71 DE: QRSD: 76 QT: 474 QTc: 515 [place]: P: DE: QRS: 85 T: 246 INTERPRETIVE STATEMENTS: Atrial fibrillation Low voltage QRS Marked ST abnormality, possible inferior subendocardial injury Prolonged QT Abnormal ECG Compared to ECG 06/23/2019 23:52:29 Low QRS voltage now present ST (T wave) deviation now present Prolonged QT interval now present Sinus bradycardia no longer present Left ventricular hypertrophy no longer present Electronically Signed On 05-30-23 17:09:50 CDT by Juancho Foreman
== END 2023-05-30 03:34 | disposition expired ==
LOC: ER 21:22
DX: I46.9 Cardiac arrest, cause unspecified (principal); E87.20 Acidosis, unspecified; D64.9 Anemia, unspecified; I10 Essential (primary) hypertension
CPT/HCPCS: 93005; 87040 ×2; 85025; 80048; 36415; 86900; 83735; 86850; 86901; 80076; 83605; 84484; 84145; 83880; 71045; 82805; 51702; 99291; 99292; J0612; J0461; J0171; J1265; J7030; 87205